=== PATIENT | female | born 2000 | race Caucasian/White ===

== ENCOUNTER → 2018-02-09 16:35 | Outpatient (CLI) | payer OTHER, MEDICAID, SELFPAY ==
[2018-02-09 18:03] LABS: Add Manual Diff / Slide Review NO; Basophils Percent Auto 0.2 % (0-2); Hematocrit 45.2 % (36-46); Hemoglobin 15.5 g/dL (12.0-16.0); Mean Corpuscular HGB Conc 34.3 % (30-36); Mean Corpuscular Hemoglobin 30.1 PG (26-34); Mean Corpuscular Volume 87.7 fL (80-100); Monocytes Percent Auto 8.1 % (3-14); Neutrophils Absolute Auto 4000 /uL (3000-5900); Neutrophils Percent Auto 57.7 % (50-75); Platelet Count 324 X10^3/uL (150-400); Red Blood Cell Count 5.15 X10^6/uL (4.0-5.2); Red Cell Distribution Width 12.3 % (11.6-14.8); White Blood Cell Count 6.9 X10^3/uL (4.5-11.0)
[2018-02-09 18:28] LABS: Erythrocyte Sedimentation Rate 5 MM/HR (0-20)
[2018-02-09 18:31] LABS: Alanine Aminotransferase 53 IU/L (9-52); Albumin 4.9 g/dL (3.5-5.0); Albumin Globulin Ratio 1.5 (1.0-2.8); Alkaline Phosphatase 76 U/L (38-126); Aspartate Aminotransferase 31 IU/L (14-36); Bilirubin Total 0.7 mg/dL (0.2-1.3); Blood Urea Nitrogen 7 mg/dL (7-17); Calcium 9.9 mg/dL (8.4-10.2); Carbon Dioxide 31 mmol/L (22-32); Chloride 100 mmol/L (98-107); Estimated Glomerular Filt Rate > 60.0 mL/min (>60); Globulin 3.3 g/dL (1.7-4.1); Glucose 82 mg/dL (70-100); HEMOLYSIS < 15 (0-50); Potassium 4.7 mmol/L (3.4-5.1); Sodium 142 mmol/L (137-145); Total Protein 8.2 g/dL (6.3-8.2)
== END ==
PROVIDERS: Family Provider Family Medicine; PCP Family Medicine; Visit Provider Family Medicine
DX: K62.5 Hemorrhage of anus and rectum (principal)
CPT/HCPCS: 36415; 80053; 85025; 85651

== ENCOUNTER 2018-06-23 14:37 | Emergency (ER) | payer OTHER, SELFPAY ==
[2018-06-23 14:46] VITALS: BP 136/90; PULSE 78; RESP 13; TEMP 36.3; O2SAT 98
--- NOTE | 2018-06-23 14:46 | ED.WOUNDLAC ---
HPI - Wound/Laceration <MATTHEW Yung Last Filed: 06/23/18 21:40> General Chief Complaint: Wound/Laceration Stated Complaint: RIGHT THUMB INJURY Time Seen by Provider: 06/23/18 14:45 Source: patient Mode of arrival: ambulatory Limitations: no limitations History of Present Illness HPI narrative: this 18 year old healthy female was trying to pull a piece of onion off of a mandoline at work when she the cut her right thumb on 1 of the blades. She is right handed. She states that initially she had a lot of bleeding in her thumb. She thoroughly rinsed it with soap and water and used an iodine solution. Not bleeding now. She denies any weakness or paresthesia in the thumb. No other injury. She denies any possibility of and has an IUD in place. Related Data Allergies Allergy/AdvReac Type Severity Reaction Status Date / Time No Known Drug Allergies Allergy Verified 06/23/18 15:20 Review of Systems <MATTHEW Yung Last Filed: 06/23/18 21:40> Review of Systems ROS Unobtainable: All systems reviewed & are unremarkable except as noted in HPI and below Exam <Kaylee Smith PA-C - Last Filed: 06/23/18 21:40> Narrative Exam Narrative: GENERAL APPEARANCE: Patient sitting comfortably, in no distress. LUNGS: Clear to auscultation bilaterally. HEART: Rate and rhythm regular without murmur, normal S1 and S2, no S3 or S4. DERMATOLOGIC: The right thumb there are several small abraded areas on the pad. No active bleeding or open areas NEUROVASCULAR: Right thumb is warm and pink, sensation grossly intact MUSCULOSKELETAL: Right thumb full range of motion, strength is intact in all metz against resistance Initial Vital Signs Initial Vital Signs: Vital Signs Temperature 97.4 F L 06/23/18 14:46 Pulse Rate 78 06/23/18 14:46 Respiratory Rate 13 06/23/18 14:46 Blood Pressure 136/90 06/23/18 14:46 Pulse Oximetry 98 06/23/18 14:46 <Miguel Powell DO - Last Filed: 06/24/18 07:13> Initial Vital Signs Initial Vital Signs: Vital Signs Temperature 97.4 F L 06/23/18 14:46 Pulse Rate 78 06/23/18 14:46 Respiratory Rate 13 06/23/18 14:46 Blood Pressure 136/90 06/23/18 14:46 Pulse Oximetry 98 06/23/18 14:46 Course <Kaylee Smith PA-C - Last Filed: 06/23/18 21:40> Orders Ordered: Discontinued Medications Ibuprofen (Advil) 800 mg PO NOW ONE Stop: 06/23/18 15:02 Last Admin: 06/23/18 15:19 Dose: 800 mg Vital Signs - 8 hr 06/23/18 14:46 06/23/18 15:47 Temperature 97.4 F L Pulse Rate 78 80 Respiratory Rate 13 18 Blood Pressure 136/90 Blood Pressure [Left Arm] 125/94 H Pulse Oximetry 98 97 <Miguel Powell DO - Last Filed: 06/24/18 07:13> Orders Ordered: Discontinued Medications Ibuprofen (Advil) 800 mg PO NOW ONE Stop: 06/23/18 15:02 Last Admin: 06/23/18 15:19 Dose: 800 mg Vital Signs - 8 hr 06/23/18 14:46 06/23/18 15:47 Temperature 97.4 F L Pulse Rate 78 80 Respiratory Rate 13 18 Blood Pressure 136/90 Blood Pressure [Left Arm] 125/94 H Pulse Oximetry 98 97 Discharge Plan Departure Patient Disposition: Home Clinical Impression: Avulsion of skin Discharge Date/Time: 06/23/18 15:52 Interventions: ED Discharge Assessment Last Done: 06/23/18 15:52 Instructions: DI for Avulsion Laceration (Not Requiring Sutures) Activity Restrictions/Additional Instructions: please keep this wound clean and dry. Wear the dressing when you are at work for protection until this wound is healed. Monitor for any signs of infection as we talked about and to return here to your PCP right away if you notice any. Continue ibuprofen as needed for pain and you can add Tylenol if needed. Referrals: Demian Maurer MD [Physician] - <Miguel Powell DO - Last Filed: 06/24/18 07:13> Cosign ED Attending Chanel Attestation: I was available for consultation during this patient's emergency department encounter
[2018-06-23] MEDS: IBUPROFEN 400 MG TABLET 800 MG PO (15:19)
[2018-06-23 15:47] VITALS: BP 125/94; PULSE 80; RESP 18; O2SAT 97
== END 2018-06-23 15:52 | disposition home or self-care (01) ==
PROVIDERS: Emergency Provider Internal Medicine
DX: S61.011A Laceration without foreign body of right thumb without damage to nail, initial encounter (principal); W26.8XXA Contact with other sharp object(s), not elsewhere classified, initial encounter; Y99.0 Civilian activity done for income or pay
CPT/HCPCS: 99283

== ENCOUNTER 2018-08-01 16:50 | Emergency (ER) | payer OTHER, MEDICAID, SELFPAY ==
[2018-08-01 17:09] VITALS: BP 143/99; PULSE 100; RESP 18; TEMP 36.6; O2SAT 99
[2018-08-01] MEDS: ONDANSETRON 4 MG ODT PO (17:15)
== END 2018-08-01 18:05 | disposition left against medical advice (07) ==
PROVIDERS: Emergency Provider Emergency Medicine; Family Provider Family Medicine; PCP Family Medicine
CPT/HCPCS: 99282

== ENCOUNTER 2019-05-14 11:55 | Emergency (ER) | payer OTHER, MEDICAID, SELFPAY ==
[2019-05-14 12:04] VITALS: BP 112/79; PULSE 86; RESP 18; TEMP 36.3; O2SAT 98
[2019-05-14] MEDS: SODIUM CHLORIDE 0.9% 1,000 ML 1000 ML IV ×3 (12:30→16:31)
[2019-05-14] MEDS: ONDANSETRON 4 MG/2 ML INJ IV (12:30)
[2019-05-14 12:37] LABS: Add Manual Diff / Slide Review NO; Basophils Absolute Auto 0 /uL (0-100); Basophils Percent Auto 0.2 % (0-2); Eosinophils Absolute Auto 600 /uL (0-450); Eosinophils Percent Auto 7.3 % (2-4); Hematocrit 44.8 % (36-46); Hemoglobin 15.8 g/dL (12.0-16.0); Lymphocytes Absolute Auto 1800 /uL (1100-4500); Lymphocytes Percent Auto 22.4 % (25-40); Mean Corpuscular HGB Conc 35.2 % (30-36); Mean Corpuscular Hemoglobin 30.8 PG (26-34); Mean Corpuscular Volume 87.5 fL (80-100); Monocytes Absolute Auto 500 /uL (0-900); Monocytes Percent Auto 6.8 % (3-14); Neutrophils Absolute Auto 5000 /uL (1500-7000); Neutrophils Percent Auto 63.3 % (50-75); Platelet Count 323 X10^3/uL (150-400); Red Blood Cell Count 5.12 X10^6/uL (4.0-5.2); Red Cell Distribution Width 12.3 % (11.6-14.8); White Blood Cell Count 7.9 X10^3/uL (4.5-11.0)
[2019-05-14 12:41] LABS: INR 1.1 (0.9-1.3); Prothrombin Time 12.3 SECONDS (10.1-12.7)
[2019-05-14 12:43] LABS: PTT Partial Thromboplastin Tim 35 SECONDS (26.4-36.2)
[2019-05-14 12:44] LABS: Amylase 115 U/L (30-110)
[2019-05-14] MEDS: METOCLOPRAMIDE 10 MG/2 ML INJ IV (12:47)
[2019-05-14] MEDS: diphenhydrAMINE 50 MG/ML VIAL IV (12:51)
[2019-05-14 12:59] LABS: Alanine Aminotransferase 15 IU/L (<35); Albumin 5.1 g/dL (3.5-5.0); Albumin Globulin Ratio 1.5 (1.0-2.8); Alkaline Phosphatase 90 U/L (38-126); Aspartate Aminotransferase 22 IU/L (14-36); BUN Creatinine Ratio 17.1 (6-22); Bilirubin Total 0.5 mg/dL (0.2-1.3); Blood Urea Nitrogen 12 mg/dL (7-17); Carbon Dioxide 23 mmol/L (22-32); Chloride 104 mmol/L (98-107); Estimated Glomerular Filt Rate > 60.0 mL/min (>60); Globulin 3.4 g/dL (1.7-4.1); Glucose 116 mg/dL (70-100); HEMOLYSIS < 15 (0-50); Lipase 116 U/L (23-300); Potassium 3.8 mmol/L (3.4-5.1); Sodium 141 mmol/L (137-145); Total Protein 8.5 g/dL (6.3-8.2)
--- NOTE | 2019-05-14 13:01 | ED.NAVMDI ---
HPI - Nausea/Vomiting/Diarrhea <JOVAN CalvinBC - Last Filed: 05/14/19 18:46> General Chief complaint: Nausea/Vomiting/Diarrhea Stated complaint: THROWING UP NON STOP DIARRHEA ABD PAIN Time Seen by Provider: 05/14/19 12:11 Source: patient Mode of arrival: Ambulatory Limitations: no limitations History of Present Illness HPI Narrative: The patient is a 19-year-old female current everyday smoker with history of adjustment disorder and cyclic vomiting who presents with a chief complaint of nonstop throwing up and diarrhea since this morning at 10:00 a.m.. She states it hit suddenly, and she has been vomiting so much she is now vomiting bile. She complains of diarrhea and abdominal cramping. She denies any previous abdominal surgeries, please note taken anything to feel better home. She says that she cannot keep down fluids. She denies any drugs or alcohol but endorses marijuana use. She denies any objective fevers but complains of cold sweats and chills. She presents with her best friend and her boyfriend. She denies any possibility of and states that she has an IUD. She denies any dysuria urgency or frequency Related Data Previous Rx's Medication Instructions Recorded metoclopramide HCl 10 mg PO Q6H PRN #14 tab 05/14/19 ondansetron 4 mg PO Q6H PRN #20 tab 05/14/19 promethazine 25 mg TX Q4-6H PRN #12 each 05/14/19 hyoscyamine sulfate 0.125 mg PO BID-QID PRN #20 tab 05/15/19 Allergies Allergy/AdvReac Type Severity Reaction Status Date / Time No Known Drug Allergies Allergy Verified 05/14/19 12:07 Review of Systems <JOVAN CalvinBC - Last Filed: 05/14/19 18:46> Review of Systems Narrative: GENERAL: Denies chills, fatigue, malaise, fever, sweats. HEENT: Denies sinus pain, ear pain, sore throat, difficulty swallowing, dizziness. RESPIRATORY: Denies dyspnea, cough, wheezing, hemoptysis, sputum. CARDIOVASCULAR: Denies chest pain, palpitations, orthopnea, edema, GASTROINTESTINAL: See HPI : Denies dysuria, frequency, incontinence, hematuria, urinary retention. MUSCULOSKELETAL: denies weakness, joint pain, or bony pain SKIN: Denies rash, skin lesions, or other NEUROLOGIC: Denies weakness, headache, numbness, change in speech, confusion, seizures, incoordination. PSYCHIATRIC: No concerning psychosocial issues. 12 point review of systems is negative except for those stated above Patient History <FRANCISCO Calvin - Last Filed: 05/14/19 18:46> Medical History History of depression (Chronic) Surgical History No pertinent past surgical history (Chronic) Family History (System 06/25/18 @ 08:16 by Clarissa Stevenson) Other Family history non-contributory Social History Smoking Status: Current every day smoker additional social history: no EtOH or tobacco, occasional THC Smoking Status: Current every day smoker alcohol intake frequency: 0-2 drinks per day Substance Use Type: marijuana Exam <FRANCISCO Calvin - Last Filed: 05/14/19 18:46> Narrative Exam Narrative: GENERAL: This is a well-nourished, well-developed patient, actively retching while holding empty vomit bag HEAD: Atraumatic. Normocephalic. No temporal or scalp tenderness. EYES: Pupils equal round and reactive. Extraocular motions intact. No scleral icterus. No injection or drainage. ENT: Nose without bleeding, purulent drainage or septal hematoma. Throat without erythema, tonsillar hypertrophy or exudate. Uvula midline. Airway patent. NECK: Trachea midline. No JVD or lymphadenopathy. Supple, nontender, no meningeal signs. CARDIOVASCULAR: Regular rate and rhythm RESPIRATORY: Clear to auscultation. Breath sounds equal bilaterally. No wheezes, rales, or rhonchi. No cough. No increased respiratory effort. No accessory muscle use. GASTROINTESTINAL: Abdomen soft, diffusely tender, nondistended. No hepato-splenomegaly, or palpable masses. No guarding. Active bowel sounds all 4 quadrants EXTREMITIES: No clubbing, cyanosis, or edema. No joint tenderness, effusion, or edema noted. BACK: Nontender without deformity or crepitance. No flank tenderness. NEURO: AOx3. SKIN: No rash or erythema on visible skin. Appears slightly pale. Initial Vital Signs Initial Vital Signs: Vital Signs Temperature 97.3 F L 05/14/19 12:04 Pulse Rate 86 05/14/19 12:04 Respiratory Rate 18 05/14/19 12:04 Blood Pressure 112/79 05/14/19 12:04 Pulse Oximetry 98 05/14/19 12:04 <Izabel Plasencia MD - Last Filed: 05/21/19 08:08> Initial Vital Signs Initial Vital Signs: Vital Signs Temperature 97.3 F L 05/14/19 12:04 Pulse Rate 86 05/14/19 12:04 Respiratory Rate 18 05/14/19 12:04 Blood Pressure 112/79 05/14/19 12:04 Pulse Oximetry 98 05/14/19 12:04 Course <JOVAN CalvinBC - Last Filed: 05/14/19 18:46> Orders Ordered: Discontinued Medications Diphenhydramine HCl (Benadryl) 50 mg IV NOW ONE Stop: 05/14/19 12:50 Last Admin: 05/14/19 12:51 Dose: 50 mg Documented by: ALISE Sodium Chloride (Normal Saline 0.9%) 1,000 mls @ 1,000 mls/hr IV BOLUS ONE Stop: 05/14/19 13:15 Last Infusion: 05/14/19 13:36 Dose: 0 mls/hr Documented by: SCANAPNima Admin: 05/14/19 12:30 Dose: 1,000 mls/hr Documented by: SCANAPO Sodium Chloride (Normal Saline 0.9%) 1,000 mls @ 1,000 mls/hr IV BOLUS ONE Stop: 05/14/19 14:52 Last Infusion: 05/14/19 15:44 Dose: 0 mls/hr Documented by: Admin: 05/14/19 14:21 Dose: 1,000 mls/hr Documented by: SCANAPO Sodium Chloride (Normal Saline 0.9%) 1,000 mls @ 1,000 mls/hr IV BOLUS ONE Stop: 05/14/19 17:28 Last Infusion: 05/14/19 17:32 Dose: 0 mls/hr Documented by: Admin: 05/14/19 16:31 Dose: 1,000 mls/hr Documented by: OTTO Lorazepam (Ativan) 1 mg IV NOW ONE Stop: 05/14/19 13:13 Last Admin: 05/14/19 13:19 Dose: 1 mg Documented by: ALISE Metoclopramide HCl (Reglan) 10 mg IV NOW ONE Stop: 05/14/19 12:44 Last Admin: 05/14/19 12:47 Dose: 10 mg Documented by: ALISE Ondansetron HCl (Zofran) 4 mg IV NOW ONE Stop: 05/14/19 12:17 Last Admin: 05/14/19 12:30 Dose: 4 mg Documented by: OTTO Ondansetron HCl (Zofran Odt Prepack) 1 bottle MISC SEEINSTR ONE Stop: 05/14/19 17:20 Last Admin: 05/14/19 17:43 Dose: 1 bottle Documented by: ALISE Prochlorperazine (Compazine) 10 mg IV NOW ONE Stop: 05/14/19 13:13 Last Admin: 05/14/19 13:19 Dose: 10 mg Documented by: ALISE Promethazine HCl (Phenadoz) 25 mg TX NOW ONE Stop: 05/14/19 13:13 Last Admin: 05/14/19 14:20 Dose: 25 mg Documented by: OTTO Promethazine HCl (Phenergan 25 Mg Prepack) 1 bottle MISC SEEINSTR ONE Stop: 05/14/19 17:20 Last Admin: 05/14/19 17:44 Dose: 1 bottle Documented by: ALISE Vital Signs Vital signs: Vital Signs - 8 hr 05/14/19 12:04 05/14/19 13:19 05/14/19 13:21 Temperature 97.3 F L Pulse Rate 86 88 80 Respiratory Rate 18 18 Blood Pressure 112/79 122/70 Blood Pressure [Left Arm] 122/70 Pulse Oximetry 98 98 05/14/19 18:21 Temperature Pulse Rate 71 Respiratory Rate Blood Pressure Blood Pressure [Left Arm] 130/83 Pulse Oximetry 99 <Izabel Plasencia MD - Last Filed: 05/21/19 08:08> Orders Ordered: Discontinued Medications Diphenhydramine HCl (Benadryl) 50 mg IV NOW ONE Stop: 05/14/19 12:50 Last Admin: 05/14/19 12:51 Dose: 50 mg Documented by: ALISE Sodium Chloride (Normal Saline 0.9%) 1,000 mls @ 1,000 mls/hr IV BOLUS ONE Stop: 05/14/19 13:15 Last Infusion: 05/14/19 13:36 Dose: 0 mls/hr Documented by: Admin: 05/14/19 12:30 Dose: 1,000 mls/hr Documented by: AKILAHO Sodium Chloride (Normal Saline 0.9%) 1,000 mls @ 1,000 mls/hr IV BOLUS ONE Stop: 05/14/19 14:52 Last Infusion: 05/14/19 15:44 Dose: 0 mls/hr Documented by: Admin: 05/14/19 14:21 Dose: 1,000 mls/hr Documented by: OTTO Sodium Chloride (Normal Saline 0.9%) 1,000 mls @ 1,000 mls/hr IV BOLUS ONE Stop: 05/14/19 17:28 Last Infusion: 05/14/19 17:32 Dose: 0 mls/hr Documented by: Admin: 05/14/19 16:31 Dose: 1,000 mls/hr Documented by: OTTO Lorazepam (Ativan) 1 mg IV NOW ONE Stop: 05/14/19 13:13 Last Admin: 05/14/19 13:19 Dose: 1 mg Documented by: ALISE Metoclopramide HCl (Reglan) 10 mg IV NOW ONE Stop: 05/14/19 12:44 Last Admin: 05/14/19 12:47 Dose: 10 mg Documented by: ALISE Ondansetron HCl (Zofran) 4 mg IV NOW ONE Stop: 05/14/19 12:17 Last Admin: 05/14/19 12:30 Dose: 4 mg Documented by: OTTO Ondansetron HCl (Zofran Odt Prepack) 1 bottle MISC SEEINSTR ONE Stop: 05/14/19 17:20 Last Admin: 05/14/19 17:43 Dose: 1 bottle Documented by: ALISE Prochlorperazine (Compazine) 10 mg IV NOW ONE Stop: 05/14/19 13:13 Last Admin: 05/14/19 13:19 Dose: 10 mg Documented by: ALISE Promethazine HCl (Phenadoz) 25 mg TX NOW ONE Stop: 05/14/19 13:13 Last Admin: 05/14/19 14:20 Dose: 25 mg Documented by: OTTO Promethazine HCl (Phenergan 25 Mg Prepack) 1 bottle MISC SEEINSTR ONE Stop: 05/14/19 17:20 Last Admin: 05/14/19 17:44 Dose: 1 bottle Documented by: ALISE Vital Signs Vital signs: Vital Signs - 8 hr 05/14/19 12:04 05/14/19 13:19 05/14/19 13:21 Temperature 97.3 F L Pulse Rate 86 88 80 Respiratory Rate 18 18 Blood Pressure 112/79 122/70 Blood Pressure [Left Arm] 122/70 Pulse Oximetry 98 98 05/14/19 18:21 Temperature Pulse Rate 71 Respiratory Rate Blood Pressure Blood Pressure [Left Arm] 130/83 Pulse Oximetry 99 MDM - Nausea/Vomiting/Diarrhea <CAMILLE Calvin- - Last Filed: 05/14/19 18:46> Lab Data Result diagrams: 05/14/19 12:25 05/14/19 12:25 Labs: Lab Results 05/14/19 05/14/19 05/14/19 Range/Units 12:25 12:25 12:25 WBC 7.9 (4.5-11.0) X10^3/uL RBC 5.12 (4.0-5.2) X10^6/uL Hgb 15.8 (12.0-16.0) g/dL Hct 44.8 (36-46) % MCV 87.5 (80-100) fL MCH 30.8 (26-34) PG MCHC 35.2 (30-36) % RDW 12.3 (11.6-14.8) % Plt Count 323 (150-400) X10^3/uL Neut % (Auto) 63.3 (50-75) % Lymph % (Auto) 22.4 L (25-40) % [place] % (Auto) 6.8 (3-14) % Eos % (Auto) 7.3 H (2-4) % Baso % (Auto) 0.2 (0-2) % Neut # (Auto) 5000 (7616-7786) /uL Lymph # (Auto) 1800 (4832-7018) /uL [place] # (Auto) 500 (0-900) /uL Eos # (Auto) 600 H (0-450) /uL Baso # (Auto) 0 (0-100) /uL PT 12.3 (10.1-12.7) SECONDS INR 1.1 (0.9-1.3) APTT 35 (26.4-36.2) SECONDS Sodium 141 (137-145) mmol/L Potassium 3.8 (3.4-5.1) mmol/L Chloride 104 (98-107) mmol/L Carbon Dioxide 23 (22-32) mmol/L BUN 12 (7-17) mg/dL Creatinine 0.70 (0.52-1.04) mg/dL Estimated GFR > 60.0 (>60) mL/min BUN/Creatinine Ratio 17.1 (6-22) Glucose 116 H (70-100) mg/dL Calcium 10.0 (8.4-10.2) mg/dL Total Bilirubin 0.5 (0.2-1.3) mg/dL AST 22 (14-36) IU/L ALT 15 (<35) IU/L Alkaline Phosphatase 90 (38-126) U/L Total Protein 8.5 H (6.3-8.2) g/dL Albumin 5.1 H (3.5-5.0) g/dL Globulin 3.4 (1.7-4.1) g/dL Albumin/Globulin Ratio 1.5 (1.0-2.8) Amylase (30-110) U/L Lipase 116 (23-300) U/L Urine RBC (0-5/HPF) Urine WBC (0-5/HPF) Ur Squamous Epith Cells (0-5/HPF) Amorphous Sediment Urine Bacteria (None) Ur Culture Indicated? 05/14/19 05/14/19 Range/Units 12:25 16:02 WBC (4.5-11.0) X10^3/uL RBC (4.0-5.2) X10^6/uL Hgb (12.0-16.0) g/dL Hct (36-46) % MCV (80-100) fL MCH (26-34) PG MCHC (30-36) % RDW (11.6-14.8) % Plt Count (150-400) X10^3/uL Neut % (Auto) (50-75) % Lymph % (Auto) (25-40) % [place] % (Auto) (3-14) % Eos % (Auto) (2-4) % Baso % (Auto) (0-2) % Neut # (Auto) (7161-0366) /uL Lymph # (Auto) (5647-0051) /uL [place] # (Auto) (0-900) /uL Eos # (Auto) (0-450) /uL Baso # (Auto) (0-100) /uL PT (10.1-12.7) SECONDS INR (0.9-1.3) APTT (26.4-36.2) SECONDS Sodium (137-145) mmol/L Potassium (3.4-5.1) mmol/L Chloride (98-107) mmol/L Carbon Dioxide (22-32) mmol/L BUN (7-17) mg/dL Creatinine (0.52-1.04) mg/dL Estimated GFR (>60) mL/min BUN/Creatinine Ratio (6-22) Glucose (70-100) mg/dL Calcium (8.4-10.2) mg/dL Total Bilirubin (0.2-1.3) mg/dL AST (14-36) IU/L ALT (<35) IU/L Alkaline Phosphatase (38-126) U/L Total Protein (6.3-8.2) g/dL Albumin (3.5-5.0) g/dL Globulin (1.7-4.1) g/dL Albumin/Globulin Ratio (1.0-2.8) Amylase 115 H (30-110) U/L Lipase (23-300) U/L Urine RBC None seen (0-5/HPF) Urine WBC None seen (0-5/HPF) Ur Squamous Epith Cells 1-5 /hpf (0-5/HPF) Amorphous Sediment 1+ Urine Bacteria None seen (None) Ur Culture Indicated? Cult not indicated Point of Care Testing Test Results Negative Urine Dip Bedside Urine Glucose Negative Bedside Urine Bilirubin - Negative Bedside Urine Ketone ++ 40 Urine Specific [place] 1.015 Bedside Urine Occult Blood - Negative Bedside Urine pH 8.0 Bedside Urine Protein +/- 15 Bedside Urine Urobilinogen - Negative Bedside Urine Nitrite - Negative Bedside Urine Leukocytes - Negative Esterase ECG Data Attestation: I personally reviewed and interpreted this ECG as follows: Interpretation: Sinus rhythm. Ventricular rate 70. No ST elevation or depression noted. No ectopy noted. P.r. interval 155. QRS duration 99. MDM Narrative Medical decision making narrative: The patient is a 19-year-old female who presents with her 4th episode of vomiting with occasional diarrhea. She has been seen at other facilities for this, including CT scan evaluation. Her labs are grossly normal. She has no fever, no leukocytosis on labs. She is given multiple antiemetics including Zofran, Reglan, Ativan, Phenergan. She felt improved after 3 L of fluid and the above-stated therapies. However she still feels nauseous, and vomit slightly. I offered to CT scan and try to arrange for admission. The patient declines at this point time. She states that she has had multiple CTs recently with no findings. I discussed at length resting her stomach, gave her antiemetic prescriptions as well as take-home packs. I discussed at length follow up with primary care provider, strongly suggested stopping smoking marijuana as she could have marijuana induced cyclic vomiting syndrome. Discussed at length return precautions the emergency department cleaning inability keep down fluids after rest, not pain fever etc.. Patient family have no questions or concerns upon discharge and state understanding of return precautions as well as follow-up care. <Izabel Plasencia MD - Last Filed: 05/21/19 08:08> Lab Data Labs: Lab Results 05/14/19 05/14/19 05/14/19 Range/Units 12:25 12:25 12:25 WBC 7.9 (4.5-11.0) X10^3/uL RBC 5.12 (4.0-5.2) X10^6/uL Hgb 15.8 (12.0-16.0) g/dL Hct 44.8 (36-46) % MCV 87.5 (80-100) fL MCH 30.8 (26-34) PG MCHC 35.2 (30-36) % RDW 12.3 (11.6-14.8) % Plt Count 323 (150-400) X10^3/uL Neut % (Auto) 63.3 (50-75) % Lymph % (Auto) 22.4 L (25-40) % [place] % (Auto) 6.8 (3-14) % Eos % (Auto) 7.3 H (2-4) % Baso % (Auto) 0.2 (0-2) % Neut # (Auto) 5000 (9785-3227) /uL Lymph # (Auto) 1800 (2426-8411) /uL [place] # (Auto) 500 (0-900) /uL Eos # (Auto) 600 H (0-450) /uL Baso # (Auto) 0 (0-100) /uL PT 12.3 (10.1-12.7) SECONDS INR 1.1 (0.9-1.3) APTT 35 (26.4-36.2) SECONDS Sodium 141 (137-145) mmol/L Potassium 3.8 (3.4-5.1) mmol/L Chloride 104 (98-107) mmol/L Carbon Dioxide 23 (22-32) mmol/L BUN 12 (7-17) mg/dL Creatinine 0.70 (0.52-1.04) mg/dL Estimated GFR > 60.0 (>60) mL/min BUN/Creatinine Ratio 17.1 (6-22) Glucose 116 H (70-100) mg/dL Calcium 10.0 (8.4-10.2) mg/dL Total Bilirubin 0.5 (0.2-1.3) mg/dL AST 22 (14-36) IU/L ALT 15 (<35) IU/L Alkaline Phosphatase 90 (38-126) U/L Total Protein 8.5 H (6.3-8.2) g/dL Albumin 5.1 H (3.5-5.0) g/dL Globulin 3.4 (1.7-4.1) g/dL Albumin/Globulin Ratio 1.5 (1.0-2.8) Amylase (30-110) U/L Lipase 116 (23-300) U/L Urine RBC (0-5/HPF) Urine WBC (0-5/HPF) Ur Squamous Epith Cells (0-5/HPF) Amorphous Sediment Urine Bacteria (None) Ur Culture Indicated? 05/14/19 05/14/19 Range/Units 12:25 16:02 WBC (4.5-11.0) X10^3/uL RBC (4.0-5.2) X10^6/uL Hgb (12.0-16.0) g/dL Hct (36-46) % MCV (80-100) fL MCH (26-34) PG MCHC (30-36) % RDW (11.6-14.8) % Plt Count (150-400) X10^3/uL Neut % (Auto) (50-75) % Lymph % (Auto) (25-40) % [place] % (Auto) (3-14) % Eos % (Auto) (2-4) % Baso % (Auto) (0-2) % Neut # (Auto) (6440-2992) /uL Lymph # (Auto) (3235-3421) /uL [place] # (Auto) (0-900) /uL Eos # (Auto) (0-450) /uL Baso # (Auto) (0-100) /uL PT (10.1-12.7) SECONDS INR (0.9-1.3) APTT (26.4-36.2) SECONDS Sodium (137-145) mmol/L Potassium (3.4-5.1) mmol/L Chloride (98-107) mmol/L Carbon Dioxide (22-32) mmol/L BUN (7-17) mg/dL Creatinine (0.52-1.04) mg/dL Estimated GFR (>60) mL/min BUN/Creatinine Ratio (6-22) Glucose (70-100) mg/dL Calcium (8.4-10.2) mg/dL Total Bilirubin (0.2-1.3) mg/dL AST (14-36) IU/L ALT (<35) IU/L Alkaline Phosphatase (38-126) U/L Total Protein (6.3-8.2) g/dL Albumin (3.5-5.0) g/dL Globulin (1.7-4.1) g/dL Albumin/Globulin Ratio (1.0-2.8) Amylase 115 H (30-110) U/L Lipase (23-300) U/L Urine RBC None seen (0-5/HPF) Urine WBC None seen (0-5/HPF) Ur Squamous Epith Cells 1-5 /hpf (0-5/HPF) Amorphous Sediment 1+ Urine Bacteria None seen (None) Ur Culture Indicated? Cult not indicated Point of Care Testing Test Results Negative Urine Dip Bedside Urine Glucose Negative Bedside Urine Bilirubin - Negative Bedside Urine Ketone ++ 40 Urine Specific [place] 1.015 Bedside Urine Occult Blood - Negative Bedside Urine pH 8.0 Bedside Urine Protein +/- 15 Bedside Urine Urobilinogen - Negative Bedside Urine Nitrite - Negative Bedside Urine Leukocytes - Negative Esterase Discharge Plan Departure Patient Disposition: Home Clinical Impression: Vomiting Qualifiers: Vomiting type: unspecified Vomiting Intractability: non-intractable Nausea presence: with nausea Qualified Code(s): R11.2 - Nausea with vomiting, unspecified Discharge Date/Time: 05/14/19 18:48 Instructions: DI for Nausea -- Adult, DI for Vomiting -- Adult, DI for Cyclic Vomiting Syndrome-Child Activity Restrictions/Additional Instructions: We have given you to take-home packs as well as 3 prescriptions for antinausea medications. Please rest your stomach. Please follow-up with primary care provider. As discussed, please come back to the emergency department for any acute concerns such as abdominal who fever etcetera Prescriptions: New ondansetron 4 mg tablet,disintegrating 4 mg PO Q6H PRN (Reason: nausea and vomiting) Qty: 20 RF: 0 metoclopramide HCl 10 mg tablet 10 mg PO Q6H PRN (Reason: nausea and vomiting) Qty: 14 RF: 0 promethazine 25 mg suppository 25 mg TX Q4-6H PRN (Reason: nausea and vomiting) Qty: 12 RF: 0 No Action hyoscyamine sulfate 0.125 mg tablet 0.125 mg PO BID-QID PRN (Reason: dyspepsia) Qty: 20 RF: 0 Referrals: Demian Maurer MD [Primary Care Provider] -
[2019-05-14 13:19] VITALS: BP 122/70; PULSE 88
[2019-05-14] MEDS: LORazepam 2 MG/ML INJ 1 MG IV (13:19)
[2019-05-14] MEDS: PROCHLORPERAZINE 10 MG/2 ML VIAL IV (13:19)
--- NOTE | 2019-05-14 13:19 | DI.RAD.S_ITS ---
PROCEDURE: XR ABDOMEN 1V INDICATIONS: abd pain, vomiting TECHNIQUE: One view of the abdomen acquired. COMPARISON: [facility], CT, CT ABDOMEN PELVIS WITH CONTRAST, 08/02/2018, 0:11. FINDINGS: Surgical changes and devices: Note is made of a IUD centered just to the left of midline, similar in position to that present on CT scanogram from 08/02/18.. Bowel: Bowel gas pattern is normal. Soft tissues: No suspicious abdominal calcifications. Visualized solid organ contours appear normal in size. A technologist note explains that to tubular metallic structures overlying the superior left sacrum and the appendix area of the right hemipelvis represent metal components of the patient's sweatpants drawstrings. Bones: No suspicious bony lesions. IMPRESSION: Nonspecific bowel gas pattern, IUD in similar position to that noted during CT scanning 08/02/18. Dictated by: David Nuñez M.D. on 05/14/2019 at 13:36 Approved by: David Nuñez M.D. on 05/14/2019 at 13:40
[2019-05-14 13:21] VITALS: BP 122/70; PULSE 80; RESP 18; O2SAT 98
[2019-05-14] MEDS: PROMETHAZINE 25 MG SUPP PR (14:20)
[2019-05-14 16:15] LABS: Bacteria Urine None Seen; RBC Urine None Seen (0-5/HPF); WBC Urine None Seen (0-5/HPF)
[2019-05-14 16:28] LABS: Amorphous Sediment Urine 1+; Culture Indicated Urine Cult Not Indicated; Squamous Epithelial Cell Urine 1-5 /HPF (0-5/HPF)
[2019-05-14] MEDS: ONDANSETRON 4 MG ODT PREPACK 1 BOTTLE MISC (17:43)
[2019-05-14] MEDS: PROMETHAZINE 25 MG PREPACK 1 BOTTLE MISC (17:44)
[2019-05-14 18:21] VITALS: BP 130/83; PULSE 71; O2SAT 99
== END 2019-05-14 18:48 | disposition home or self-care (01) ==
PROVIDERS: Emergency Medicine; Emergency Provider Nurse Practitioner Family; Family Provider Family Medicine; PCP Family Medicine
DX: R11.2 Nausea with vomiting, unspecified (principal)
CPT/HCPCS: 36415; 74018; 80053; 81003; 81015; 81025; 82150; 83690; 85025; 85610; 85730; 93005; 96361; 96374; 96375; 99284; 99285; J0780; J1200; J2060; J2405; J2765

== ENCOUNTER 2019-05-15 20:07 | Emergency (ER) | payer OTHER, MEDICAID, SELFPAY ==
[2019-05-15 20:18] VITALS: BP 135/92; PULSE 77; RESP 18; TEMP 37; O2SAT 100
--- NOTE | 2019-05-15 20:28 | ED_ITS ---
HPI - Nausea/Vomiting/Diarrhea General Chief complaint: Nausea/Vomiting/Diarrhea Stated complaint: vomiting since yesterday Time Seen by Provider: 05/15/19 20:10 Source: patient Mode of arrival: Ambulatory Limitations: no limitations History of Present Illness HPI Narrative: 19-year-old female smoker and daily user of marijuana returns for evaluation generalized abdominal discomfort and frequent vomiting over the course of the day. She was seen and evaluated yesterday under similar circumstances and had reassuring blood work and cessation of symptoms after 3 L of fluid and multiple antiemetics. She continues to complain of generalized crampy abdominal discomfort that comes in waves without provocation, palliation or radiation. She has had no fever or chills. She denies exposure to ill persons but states she ate some foul tasting [employer] a few days ago. She denies recent antibiotic use. MD complaint: nausea and vomiting Onset (ago): day(s) Description of Vomiting: food contents and bilious Description of Diarrhea: none Associated Abdominal Pain: Yes Location of pain: diffuse Severity: moderate Quality: cramping Pain Consistency: intermittent and colicky Relieving factors: none Related Data Previous Rx's Medication Instructions Recorded metoclopramide HCl 10 mg PO Q6H PRN #14 tab 05/14/19 ondansetron 4 mg PO Q6H PRN #20 tab 05/14/19 promethazine 25 mg VT Q4-6H PRN #12 each 05/14/19 hyoscyamine sulfate 0.125 mg PO BID-QID PRN #20 tab 05/15/19 Allergies Allergy/AdvReac Type Severity Reaction Status Date / Time No Known Drug Allergies Allergy Verified 05/14/19 12:07 Review of Systems Constitutional Constitutional: Denies chills, Denies fatigue, Denies fever(s), Denies frequent falls, Denies lethargy and Denies weakness Eyes Eyes: Denies change in vision, Denies eye discharge, Denies irritation and Denies loss of vision ENT Ears, Nose, Mouth, and Throat: Denies change in voice, Denies dizziness, Denies neck pain, Denies sore throat and Denies throat swelling Cardiovascular Cardiovascular: Denies chest pain, Denies irregular heart rhythm, Denies lightheadedness, Denies palpitations, Denies dyspnea, Denies dyspnea on exertion and Denies orthopnea Respiratory Respiratory: Denies cough, Denies dyspnea, Denies dyspnea on exertion and Denies wheezing Gastrointestinal Gastrointestinal: Reports abdominal pain, Denies change in bowel habits, Denies diarrhea, Denies nausea and Reports vomiting Genitourinary Genitourinary: Denies hematuria, Denies flank pain, Denies urinary incontinence and Denies urinary urgency Musculoskeletal Musculoskeletal: Denies back pain, Denies muscle weakness, Denies neck pain, Denies numbness and Denies tingling Integumentary/Breasts Skin/Breast: Denies pruritus, Denies erythema, Denies rash and Denies wounds Neurologic Neurologic: Denies behavioral changes, Denies confusion, Denies dizziness, Denies frequent falls, Denies loss of vision, Denies numbness, Denies tingling and Denies weakness Psychiatric Psychiatric: Denies anxiety, Denies behavioral changes, Denies confusion, Denies depression, Denies homicidal ideation and Denies suicidal ideation Endocrine Endocrine: Denies fatigue, Denies flushing and Denies palpitations Hematologic/Lymphatic Hematologic/Lymphatic: Denies easy bruising Allergic/Immunologic Allergic/Immunologic: Denies urticaria, Denies throat swelling and Denies wheezing Patient History Family History (System 06/25/18 @ 08:16 by Clarissa Stevenson) Other Family history non-contributory Social History Smoking Status: Current every day smoker additional social history: no EtOH or tobacco, occasional THC Smoking Status: Current every day smoker alcohol intake frequency: 0-2 drinks per day Substance Use Type: marijuana Exam Narrative Exam Narrative: GENERAL: [19] year old patient appears stated age. Well- nourished, well-developed patient, in mild distress. Holding emesis bag HEAD: Atraumatic. Normocephalic. EYES: Pupils equal round and reactive. Extraocular motions intact. No scleral icterus. No injection or drainage. ENT: Nose without bleeding, purulent drainage. Throat without erythema, tonsillar hypertrophy or exudate. Airway patent. NECK: Trachea midline. Non tender CARDIOVASCULAR: Regular rate and rhythm without murmurs, gallops, or rubs. RESPIRATORY: Clear to auscultation. Breath sounds equal bilaterally. No wheezes, rales, or rhonchi. GASTROINTESTINAL: Abdomen soft, non-tender, nondistended. EXTREMITIES: No edema or joint tenderness. BACK: Nontender without deformity or crepitance. No flank tenderness. NEURO: AOx3. SKIN: No rash or erythema of visible areas Initial Vital Signs Initial Vital Signs: Vital Signs Temperature 98.6 F 05/15/19 20:18 Pulse Rate 77 05/15/19 20:18 Respiratory Rate 18 05/15/19 20:18 Blood Pressure 135/92 H 05/15/19 20:18 Pulse Oximetry 100 05/15/19 20:18 Course Orders Ordered: ED Orders 05/15/19 20:29 Comprehensive Metabolic Panel Stat Lipase Stat 05/15/19 20:41 XR acute abdomen series Stat 05/15/19 20:55 Complete Blood Count AUTO DIFF Stat Partial Thromboplastin Time Stat Prothrombin Time INR Stat Discontinued Medications Sodium Chloride (Normal Saline 0.9%) 1,000 mls @ 1,000 mls/hr IV BOLUS ONE Stop: 05/15/19 21:26 Last Infusion: 05/15/19 22:23 Dose: 0 mls/hr Documented by: Infusion: 05/15/19 21:27 Dose: 1,000 mls/hr Documented by: Infusion: 05/15/19 21:02 Dose: 0 mls/hr Documented by: Infusion: 05/15/19 20:39 Dose: 1,000 mls/hr Documented by: Infusion: 05/15/19 20:34 Dose: 0 mls/hr Documented by: Admin: 05/15/19 20:34 Dose: 1,000 mls/hr Documented by: ERICH Nalbuphine HCl (Nubain) 5 mg IV NOW ONE Stop: 05/15/19 20:42 Last Admin: 05/15/19 20:49 Dose: 5 mg Documented by: ERICH Ondansetron HCl (Zofran) 4 mg IV NOW ONE Stop: 05/15/19 20:27 Last Admin: 05/15/19 20:34 Dose: 4 mg Documented by: ERICH Pantoprazole Sodium (Protonix) 40 mg IV NOW ONE Stop: 05/15/19 20:39 Last Admin: 05/15/19 20:43 Dose: 40 mg Documented by: ERICH Vital Signs Vital signs: Vital Signs - 8 hr 05/15/19 20:18 05/15/19 22:23 Temperature 98.6 F Pulse Rate 77 65 Respiratory Rate 18 18 Blood Pressure 128/82 Blood Pressure [Left Arm] 135/92 H Pulse Oximetry 100 100 MDM - Nausea/Vomiting/Diarrhea Lab Data Result diagrams: 05/15/19 20:55 05/15/19 20:29 Labs: Lab Results 05/15/19 05/15/19 05/15/19 Range/Units 20:29 20:55 20:55 WBC 11.8 H (4.5-11.0) X10^3/uL RBC 4.67 (4.0-5.2) X10^6/uL Hgb 14.2 (12.0-16.0) g/dL Hct 41.6 (36-46) % MCV 89.1 (80-100) fL MCH 30.4 (26-34) PG MCHC 34.1 (30-36) % RDW 12.5 (11.6-14.8) % Plt Count 283 (150-400) X10^3/uL Neut % (Auto) Not Reportable Lymph % (Auto) Not Reportable Lamar % (Auto) Not Reportable Eos % (Auto) Not Reportable Baso % (Auto) Not Reportable Lymph # (Auto) Not Reportable Lamar # (Auto) Not Reportable Baso # (Auto) Not Reportable Total Counted 100 Seg Neutrophils % 80.0 H (38-70) % Band Neutrophils % 1.0 L (3-7) % Lymphocytes % (Manual) 18.0 L (25-45) % Monocytes % (Manual) 1.0 L (2-11) % Neutrophils # (Manual) 9558 H (7932-3363) /uL RBC Morphology Normal morphology PT 14.5 H (10.1-12.7) SECONDS INR 1.3 (0.9-1.3) APTT 34 (26.4-36.2) SECONDS Sodium 140 (137-145) mmol/L Potassium 3.4 (3.4-5.1) mmol/L Chloride 103 (98-107) mmol/L Carbon Dioxide 23 (22-32) mmol/L BUN 10 (7-17) mg/dL Creatinine 0.60 (0.52-1.04) mg/dL Estimated GFR > 60.0 (>60) mL/min BUN/Creatinine Ratio 16.7 (6-22) Glucose 109 H (70-100) mg/dL Calcium 10.2 (8.4-10.2) mg/dL Total Bilirubin 0.6 (0.2-1.3) mg/dL AST 24 (14-36) IU/L ALT 15 (<35) IU/L Alkaline Phosphatase 81 (38-126) U/L Total Protein 8.5 H (6.3-8.2) g/dL Albumin 5.1 H (3.5-5.0) g/dL Globulin 3.4 (1.7-4.1) g/dL Albumin/Globulin Ratio 1.5 (1.0-2.8) Lipase 66 (23-300) U/L Imaging Data Abdominal x-ray: Radiologist's Impression: 10 DO Roney Higginbotham Patient Imaging - Arpita Parmar 19 F 2000 ACTIVITY DATE EXAM STATUS AUTHOR 05/15/19 20:41 Signed Danika Glasgow [address] [address] XRay Report Signed Patient: Arpita Parmar MMR#: [id number] : 2000Acct:[id number] Age/Sex: te of Service: 05/15/19 Loc: ED Accession Number: [id number] Procedure: XR acute abdomen series Ordering Provider: Ivan Fischer D.O. PROCEDURE: XR ACUTE ABDOMEN SERIES INDICATIONS: Abdominal pain, vomiting TECHNIQUE: One view chest and two views of the abdomen were acquired. COMPARISON: [facility], , XR ABDOMEN 1V, 05/14/2019, 13:19. FINDINGS: Surgical changes and devices: Intrauterine line projects over the mid pelvis. Chest: Lungs are clear. Heart size is normal. No pleural effusions. No pneumoperitoneum. Abdomen: Bowel gas pattern is nonspecific. No suspicious calcifications. Visualized solid organ contours appear normal. Bones: No suspicious bony lesions. IMPRESSION: Nonspecific bowel gas pattern without evidence of obstruction. Dictated by: Danika Glasgow MD, PhD on 05/15/2019 at 21:19 Approved by: Danika Glasgow MD, PhD on 05/15/2019 at 21:20 [facility] Narrative Medical decision making narrative: Multiple etiologies for patient's symptoms considered including: [Bowel obstruction versus gastroenteritis versus irritable bowel syndrome versus THC hyperemesis versus other] Patient's symptoms improved or duration of stay with above-stated therapies. Findings and discharge diagnosis discussed with patient/family followed by verbalization of understanding Return precautions discussed with patient/family whom verbalize understanding. Discharge Plan Departure Patient Disposition: Home Clinical Impression: Vomiting Qualifiers: Vomiting type: unspecified Vomiting Intractability: non-intractable Nausea presence: with nausea Qualified Code(s): R11.2 - Nausea with vomiting, unspecified Discharge Date/Time: 05/15/19 22:23 Instructions: DI for Vomiting -- Adult Activity Restrictions/Additional Instructions: 1. Drink plenty of fluids with frequent small sips. 2. For the next 24-48 hours a clear liquid diet is advised. After that please employ a brat diet which would include bananas, rice, apples, toast. 3. Please take medications as directed. 4. Please follow-up with your doctor in the next 1-2 days. Call the office for an appointment. 5. Please return to the emergency Department for any worsening or persistent symptoms, such as increasing pain or fever. Prescriptions: New hyoscyamine sulfate 0.125 mg tablet 0.125 mg PO BID-QID PRN (Reason: dyspepsia) Qty: 20 RF: 0 No Action ondansetron 4 mg tablet,disintegrating 4 mg PO Q6H PRN (Reason: nausea and vomiting) Qty: 20 RF: 0 metoclopramide HCl 10 mg tablet 10 mg PO Q6H PRN (Reason: nausea and vomiting) Qty: 14 RF: 0 promethazine 25 mg suppository 25 mg VT Q4-6H PRN (Reason: nausea and vomiting) Qty: 12 RF: 0 Referrals: Demian Maurer MD [Primary Care Provider] -
[2019-05-15] MEDS: ONDANSETRON 4 MG/2 ML INJ IV (20:34)
[2019-05-15] MEDS: SODIUM CHLORIDE 0.9% 1,000 ML 1000 ML IV (20:34)
--- NOTE | 2019-05-15 20:41 | DI.RAD.S_ITS ---
PROCEDURE: XR ACUTE ABDOMEN SERIES INDICATIONS: Abdominal pain, vomiting TECHNIQUE: One view chest and two views of the abdomen were acquired. COMPARISON: [facility], CR, XR ABDOMEN 1V, 05/14/2019, 13:19. FINDINGS: Surgical changes and devices: Intrauterine line projects over the mid pelvis. Chest: Lungs are clear. Heart size is normal. No pleural effusions. No pneumoperitoneum. Abdomen: Bowel gas pattern is nonspecific. No suspicious calcifications. Visualized solid organ contours appear normal. Bones: No suspicious bony lesions. IMPRESSION: Nonspecific bowel gas pattern without evidence of obstruction. Dictated by: Danika Glasgow MD, PhD on 05/15/2019 at 21:19 Approved by: Danika Glasgow MD, PhD on 05/15/2019 at 21:20
[2019-05-15] MEDS: PANTOPRAZOLE 40 MG VIAL IV (20:43)
[2019-05-15] MEDS: NALBUPHINE 20 MG/ML AMPUL 5 MG IV (20:49)
[2019-05-15 20:50] LABS: Alanine Aminotransferase 15 IU/L (<35); Albumin 5.1 g/dL (3.5-5.0); Albumin Globulin Ratio 1.5 (1.0-2.8); Alkaline Phosphatase 81 U/L (38-126); Aspartate Aminotransferase 24 IU/L (14-36); BUN Creatinine Ratio 16.7 (6-22); Bilirubin Total 0.6 mg/dL (0.2-1.3); Blood Urea Nitrogen 10 mg/dL (7-17); Calcium 10.2 mg/dL (8.4-10.2); Carbon Dioxide 23 mmol/L (22-32); Chloride 103 mmol/L (98-107); Estimated Glomerular Filt Rate > 60.0 mL/min (>60); Globulin 3.4 g/dL (1.7-4.1); Glucose 109 mg/dL (70-100); HEMOLYSIS 36 (0-50); Lipase 66 U/L (23-300); Potassium 3.4 mmol/L (3.4-5.1); Sodium 140 mmol/L (137-145); Total Protein 8.5 g/dL (6.3-8.2)
[2019-05-15 21:11] LABS: Hematocrit 41.6 % (36-46); Hemoglobin 14.2 g/dL (12.0-16.0); Mean Corpuscular HGB Conc 34.1 % (30-36); Mean Corpuscular Hemoglobin 30.4 PG (26-34); Mean Corpuscular Volume 89.1 fL (80-100); Platelet Count 283 X10^3/uL (150-400); Red Blood Cell Count 4.67 X10^6/uL (4.0-5.2); Red Cell Distribution Width 12.5 % (11.6-14.8); White Blood Cell Count 11.8 X10^3/uL (4.5-11.0)
[2019-05-15 21:12] LABS: Add Manual Diff / Slide Review YES
[2019-05-15 21:15] LABS: INR 1.3 (0.9-1.3); Prothrombin Time 14.5 SECONDS (10.1-12.7)
[2019-05-15 21:17] LABS: PTT Partial Thromboplastin Tim 34 SECONDS (26.4-36.2)
[2019-05-15 21:59] LABS: Neutrophils Absolute Manual 9558 /uL (3000-5900); RBC Morphology Normal Morphology; Total Cells Counted 100
[2019-05-15 22:23] VITALS: BP 128/82; PULSE 65; RESP 18; O2SAT 100
== END 2019-05-15 22:23 | disposition home or self-care (01) ==
PROVIDERS: Emergency Provider Emergency Medicine; Family Provider Family Medicine; PCP Family Medicine
DX: R11.2 Nausea with vomiting, unspecified (principal)
CPT/HCPCS: 36415; 74022; 80053; 83690; 85025; 85610; 85730; 96361; 96374; 96375; 99284; C9113; J2300; J2405

== ENCOUNTER 2019-09-28 11:50 | Emergency (ER) | payer OTHER, MEDICAID, SELFPAY ==
[2019-09-28 12:19] VITALS: BP 136/82; PULSE 57; RESP 16; TEMP 36.3; O2SAT 100; BMI 24.6
[2019-09-28 16:26] LABS: Add Manual Diff / Slide Review NO; Basophils Absolute Auto 0 /uL (0-100); Basophils Percent Auto 0.2 % (0-2); Eosinophils Absolute Auto 0 /uL (0-450); Hematocrit 41.8 % (36-46); Hemoglobin 14.3 g/dL (12.0-16.0); Lymphocytes Absolute Auto 300 /uL (1100-4500); Lymphocytes Percent Auto 2.1 % (25-40); Mean Corpuscular HGB Conc 34.3 % (30-36); Mean Corpuscular Hemoglobin 30.2 PG (26-34); Monocytes Absolute Auto 200 /uL (0-900); Monocytes Percent Auto 1.3 % (3-14); Neutrophils Absolute Auto 15700 /uL (1500-7000); Neutrophils Percent Auto 96.4 % (50-75); Platelet Count 267 X10^3/uL (150-400); Red Blood Cell Count 4.75 X10^6/uL (4.0-5.2); White Blood Cell Count 16.3 X10^3/uL (4.5-11.0)
[2019-09-28] MEDS: SODIUM CHLORIDE 0.9% 1,000 ML 1000 ML IV ×2 (16:27→20:14)
[2019-09-28] MEDS: ONDANSETRON 4 MG/2 ML INJ IV (16:27)
[2019-09-28] MEDS: KETOROLAC 60 MG/2 ML VIAL 30 MG IV (16:28)
[2019-09-28 16:39] LABS: Alanine Aminotransferase 23 IU/L (<35); Albumin Globulin Ratio 1.5 (1.0-2.8); Alkaline Phosphatase 81 U/L (38-126); Aspartate Aminotransferase 24 IU/L (14-36); BUN Creatinine Ratio 15.6 (6-22); Bilirubin Total 0.3 mg/dL (0.2-1.3); Blood Urea Nitrogen 10 mg/dL (7-17); Calcium 9.9 mg/dL (8.4-10.2); Carbon Dioxide 25 mmol/L (22-32); Chloride 104 mmol/L (98-107); Estimated Glomerular Filt Rate > 60.0 mL/min (>60); Globulin 3.4 g/dL (1.7-4.1); Glucose 140 mg/dL (70-100); HEMOLYSIS < 15 (0-50); Potassium 4.1 mmol/L (3.4-5.1); Sodium 140 mmol/L (137-145); Total Protein 8.4 g/dL (6.3-8.2)
[2019-09-28] MEDS: METOCLOPRAMIDE 10 MG/2 ML INJ IV (17:19)
--- NOTE | 2019-09-28 17:20 | ED.NAVMDI ---
HPI - Nausea/Vomiting/Diarrhea <JUAN C Bob - Last Filed: 09/28/19 21:56> General Chief complaint: Nausea/Vomiting/Diarrhea Stated complaint: vomiting/food poisioning today Time Seen by Provider: 09/28/19 16:07 History of Present Illness HPI Narrative: 19 year old healthy female presents to the emergency department complaining of nausea, vomiting, and diarrhea that started this morning around 8:00 a.m.. She states she believes this is food poisoning. She denies any abdominal pain but states my stomach feels achy from vomiting. Patient denies any fevers, cough, shortness of breath, dizziness, chest pain, dysuria, or any other concerns. Patient denies any sick contacts. Patient denies any major abdominal surgeries, denies taking any medications, denies allergies. Patient states she has had episodes of vomiting like this in the past. She was seen in April for similar. Patient states she struggles with nausea and vomiting frequently, use resolves with a hot shower. Admits to smoking daily marijuana and cigarettes. Related Data Previous Rx's Medication Instructions Recorded metoclopramide HCl 10 mg PO Q6H PRN #14 tab 05/14/19 ondansetron 4 mg PO Q6H PRN #20 tab 05/14/19 promethazine 25 mg SC Q4-6H PRN #12 each 05/14/19 hyoscyamine sulfate 0.125 mg PO BID-QID PRN #20 tab 05/15/19 ondansetron 4 mg PO Q8H PRN #14 tab 09/28/19 promethazine 25 mg SC Q6H PRN #12 each 09/28/19 Allergies Allergy/AdvReac Type Severity Reaction Status Date / Time No Known Drug Allergies Allergy Verified 05/14/19 12:07 Review of Systems <JUAN C Bob - Last Filed: 09/28/19 21:56> Review of Systems Narrative: REVIEW OF SYSTEMS: GENERAL: Denies fever, chills, malaise, or wt. loss. HENT: No head trauma, sore throat, or dysphagia. EYES: No vision changes. CARDIOVASCULAR: No chest pain, palpitations, or orthopnea. RESPIRATORY: No shortness of breath or cough. GASTROINTESTINAL: Complains of nausea and vomiting, see HPI. GENITOURINARY: No flank pain, urinary incontinence, hesitancy, frequency, or dysuria. No vaginal discharge or dyspareunia. Denies concerns for STIs MUSCULOSKELETAL: No pain, weakness, or trauma. INTEGUMENTARY: No rash, lesions, or pruritus. NEURO: No numbness, tingling, or headaches. PSYCH: No behavior or mood changes. Patient History <JUAN C Bob - Last Filed: 09/28/19 21:56> Medical History History of depression (Chronic) Surgical History No pertinent past surgical history (Chronic) Family History Other Family history non-contributory Social History Smoking Status: Current every day smoker additional social history: no EtOH or tobacco, occasional THC Smoking Status: Current every day smoker alcohol intake frequency: 0-2 drinks per day Substance Use Type: marijuana Exam <JUAN C Bob - Last Filed: 09/28/19 21:56> Initial Vital Signs Initial Vital Signs: Vital Signs Temperature 97.3 F L 09/28/19 12:19 Pulse Rate 57 L 09/28/19 12:19 Respiratory Rate 16 09/28/19 12:19 Blood Pressure 136/82 09/28/19 12:19 Pulse Oximetry 100 09/28/19 12:19 PHYSICAL EXAMINATION: GENERAL: Well groomed, alert, and cooperative. Answers questions promptly and appropriately. Vital signs noted. HENT: Normocephalic, atraumatic. Hearing intact. Oral mucosa is pink and moist. EYES: Conjunctiva pink, sclera white, no periorbital swelling. CARDIOVASCULAR: S1 and S2 sounds normal. Regular rate and rhythm, no murmurs, clicks, or bruits. No pedal edema. RESPIRATORY: Normal respiratory rate, trachea midline, airway patent. No stridor, nasal flaring or accessory muscle use. Lungs are clear in all metz without wheeze, rhonchi, or crackles. GASTROINTESTINAL: Bowel sounds normoactive. Abdomen is soft and non-tender. No organomegaly, no palpable masses. GENITALURINARY: No flank tenderness. MUSCULOSKELETAL: Normal gait and coordination. Equal tone and mass bilaterally. EXTREMITIES: CMS intact, no pedal edema. SKIN: Warm, dry, soft, appropriate color for ethnicity. No lesions, rashes, or wounds to visualized areas. NEURO: Alert and Oriented X 3. Good coordination. No ataxia, or sensory deficits, or cognitive issues. PSYCH: Appropriate affect and mood. <Miguel Powell DO - Last Filed: 09/28/19 23:01> Initial Vital Signs Initial Vital Signs: Vital Signs Temperature 97.3 F L 09/28/19 12:19 Pulse Rate 57 L 09/28/19 12:19 Respiratory Rate 16 09/28/19 12:19 Blood Pressure 136/82 09/28/19 12:19 Pulse Oximetry 100 09/28/19 12:19 Course <JUAN C Bob - Last Filed: 09/28/19 21:56> Course Course Narrative: 1819: Patient reports she feels less nauseated, states she is ready to try something to eat. 1951: Patient tried a GI cocktail, vomited after taking it. More fluids and medications were administered. Patient was given more medications. 2014: Spoke with patient, patient states she is feeling much better. Able to tolerate water and ice chips without vomiting. Patient requesting discharge. Agrees to follow-up with PCP. Orders Ordered: ED Orders 09/28/19 16:20 Complete Blood Count AUTO DIFF Stat Comprehensive Metabolic Panel Stat 09/28/19 19:51 Test Urine Stat Discontinued Medications Al Hydrox/Mg Hydrox/Simethicone 20 ml/ Lidocaine HCl 15 ml 0 ml PO NOW ONE Stop: 09/28/19 19:01 Last Admin: 09/28/19 19:21 Dose: 35 ml Documented by: EZ Diphenhydramine HCl (Benadryl) 25 mg IV NOW ONE Stop: 09/28/19 19:52 Last Admin: 09/28/19 20:14 Dose: 25 mg Documented by: MARYCARMEN Sodium Chloride (Normal Saline 0.9%) 1,000 mls @ 1,000 mls/hr IV BOLUS PRN PRN Reason: Fluid replacement Last Infusion: 09/28/19 17:33 Dose: 0 mls/hr Documented by: Admin: 09/28/19 16:27 Dose: 1,000 mls/hr Documented by: MARYCARMEN Sodium Chloride (Normal Saline 0.9%) 1,000 mls @ 1,000 mls/hr IV BOLUS ONE Stop: 09/28/19 21:03 Last Infusion: 09/28/19 21:35 Dose: 0 mls/hr Documented by: Admin: 09/28/19 20:14 Dose: 1,000 mls/hr Documented by: MARYCARMEN Ketorolac Tromethamine (Toradol) 30 mg IV NOW ONE Stop: 09/28/19 16:16 Last Admin: 09/28/19 16:28 Dose: 30 mg Documented by: MARYCARMEN Lorazepam (Ativan) 0.5 mg IV NOW ONE Stop: 09/28/19 19:52 Last Admin: 09/28/19 20:15 Dose: 0.5 mg Documented by: MARYCARMEN Metoclopramide HCl (Reglan) 10 mg IV NOW ONE Stop: 09/28/19 17:09 Last Admin: 09/28/19 17:19 Dose: 10 mg Documented by: MARYCARMEN Ondansetron HCl (Zofran) 4 mg IV NOW ONE Stop: 09/28/19 16:16 Last Admin: 09/28/19 16:27 Dose: 4 mg Documented by: MARYCARMEN Ondansetron HCl (Zofran Odt Prepack) 1 bottle MISC SEEINSTR ONE Stop: 09/28/19 22:11 Last Admin: 09/28/19 22:20 Dose: 1 bottle Documented by: MARYCARMEN Pantoprazole Sodium (Protonix) 40 mg IV NOW ONE Stop: 09/28/19 17:23 Last Admin: 09/28/19 17:33 Dose: 40 mg Documented by: MARYCARMEN Consultations Consultation #1: Patient staffed with Dr. Powell, discussed test results and plan of care. Vital Signs Vital signs: Vital Signs - 8 hr 09/28/19 19:32 09/28/19 22:22 Temperature 98.7 F Pulse Rate 69 64 Respiratory Rate 20 16 Blood Pressure 110/72 Blood Pressure [Right Arm] 118/55 L Pulse Oximetry 100 97 <Miguel Powell, - Last Filed: 09/28/19 23:01> Orders Ordered: ED Orders 09/28/19 16:20 Complete Blood Count AUTO DIFF Stat Comprehensive Metabolic Panel Stat 09/28/19 19:51 Test Urine Stat Discontinued Medications Al Hydrox/Mg Hydrox/Simethicone 20 ml/ Lidocaine HCl 15 ml 0 ml PO NOW ONE Stop: 09/28/19 19:01 Last Admin: 09/28/19 19:21 Dose: 35 ml Documented by: EZ Diphenhydramine HCl (Benadryl) 25 mg IV NOW ONE Stop: 09/28/19 19:52 Last Admin: 09/28/19 20:14 Dose: 25 mg Documented by: MARYCARMEN Sodium Chloride (Normal Saline 0.9%) 1,000 mls @ 1,000 mls/hr IV BOLUS PRN PRN Reason: Fluid replacement Last Infusion: 09/28/19 17:33 Dose: 0 mls/hr Documented by: Admin: 09/28/19 16:27 Dose: 1,000 mls/hr Documented by: MARYCARMEN Sodium Chloride (Normal Saline 0.9%) 1,000 mls @ 1,000 mls/hr IV BOLUS ONE Stop: 09/28/19 21:03 Last Infusion: 09/28/19 21:35 Dose: 0 mls/hr Documented by: Admin: 09/28/19 20:14 Dose: 1,000 mls/hr Documented by: MARYCARMEN Ketorolac Tromethamine (Toradol) 30 mg IV NOW ONE Stop: 09/28/19 16:16 Last Admin: 09/28/19 16:28 Dose: 30 mg Documented by: MARYCARMEN Lorazepam (Ativan) 0.5 mg IV NOW ONE Stop: 09/28/19 19:52 Last Admin: 09/28/19 20:15 Dose: 0.5 mg Documented by: MARYCARMEN Metoclopramide HCl (Reglan) 10 mg IV NOW ONE Stop: 09/28/19 17:09 Last Admin: 09/28/19 17:19 Dose: 10 mg Documented by: MARYCARMEN Ondansetron HCl (Zofran) 4 mg IV NOW ONE Stop: 09/28/19 16:16 Last Admin: 09/28/19 16:27 Dose: 4 mg Documented by: MARYCARMEN Ondansetron HCl (Zofran Odt Prepack) 1 bottle MISC SEEINSTR ONE Stop: 09/28/19 22:11 Last Admin: 09/28/19 22:20 Dose: 1 bottle Documented by: MARYCARMEN Pantoprazole Sodium (Protonix) 40 mg IV NOW ONE Stop: 09/28/19 17:23 Last Admin: 09/28/19 17:33 Dose: 40 mg Documented by: MARYCARMEN Vital Signs Vital signs: Vital Signs - 8 hr 09/28/19 19:32 09/28/19 22:22 Temperature 98.7 F Pulse Rate 69 64 Respiratory Rate 20 16 Blood Pressure 110/72 Blood Pressure [Right Arm] 118/55 L Pulse Oximetry 100 97 MDM - Nausea/Vomiting/Diarrhea <JUAN C Bob - Last Filed: 09/28/19 21:56> Medical Records Attestation: I reviewed the patient's medical records. Lab Data Attestation: I reviewed the patient's lab results. Result diagrams: 09/28/19 16:20 09/28/19 16:20 Labs: Lab Results 09/28/19 09/28/19 09/28/19 Range/Units 16:20 16:20 19:51 WBC 16.3 H (4.5-11.0) X10^3/uL RBC 4.75 (4.0-5.2) X10^6/uL Hgb 14.3 (12.0-16.0) g/dL Hct 41.8 (36-46) % MCV 88.0 (80-100) fL MCH 30.2 (26-34) PG MCHC 34.3 (30-36) % RDW 12.0 (11.6-14.8) % Plt Count 267 (150-400) X10^3/uL Neut % (Auto) 96.4 H (50-75) % Lymph % (Auto) 2.1 L (25-40) % [place] % (Auto) 1.3 L (3-14) % Eos % (Auto) 0.0 L (2-4) % Baso % (Auto) 0.2 (0-2) % Neut # (Auto) 52749 H (1653-1189) /uL Lymph # (Auto) 300 L (7037-2924) /uL [place] # (Auto) 200 (0-900) /uL Eos # (Auto) 0 (0-450) /uL Baso # (Auto) 0 (0-100) /uL Sodium 140 (137-145) mmol/L Potassium 4.1 (3.4-5.1) mmol/L Chloride 104 (98-107) mmol/L Carbon Dioxide 25 (22-32) mmol/L BUN 10 (7-17) mg/dL Creatinine 0.64 (0.52-1.04) mg/dL Estimated GFR > 60.0 (>60) mL/min BUN/Creatinine Ratio 15.6 (6-22) Glucose 140 H (70-100) mg/dL Calcium 9.9 (8.4-10.2) mg/dL Total Bilirubin 0.3 (0.2-1.3) mg/dL AST 24 (14-36) IU/L ALT 23 (<35) IU/L Alkaline Phosphatase 81 (38-126) U/L Total Protein 8.4 H (6.3-8.2) g/dL Albumin 5.0 (3.5-5.0) g/dL Globulin 3.4 (1.7-4.1) g/dL Albumin/Globulin Ratio 1.5 (1.0-2.8) Urine Test Negative (Negative) Urine Dip Bedside Urine Glucose Negative Bedside Urine Bilirubin - Negative Bedside Urine Ketone +++ 80 Urine Specific Ashley 1.010 Bedside Urine Occult Blood ++ Bedside Urine Protein +/- 15 Bedside Urine Urobilinogen - Negative Bedside Urine Nitrite - Negative Bedside Urine Leukocytes - Negative Esterase MDM Narrative Medical decision making narrative: 19-year-old female with a history of cyclic vomiting presents emergency department for onset of vomiting a.m. this morning. Patient presents hemodynamically stable, non tachycardic, afebrile, does not complain of abdominal pain. Patient is seen vomiting in the emergency department. Improved symptoms after fluid and Zofran however continues to occasionally vomit. Patient was given Reglan, p.o. trial failed with GI cocktail. Patient was given Protonix, fluids, Ativan, and Benadryl. This point patient was able to tolerate p.o. fluid and ice chips. Patient was requesting go home. Continued to deny any abdominal pain, abdominal exam non-remarkable, this decreases suspicion for acute inner abdominal etiology (such as appendicitis, blockage, or infection) no indication for imaging or CT. White count was slightly elevated, this may be due to vomiting. Urine without leukocytes or nitrates. Small amount of blood and ketones known, urine sent to lab for possible culture if indicated, patient is asymptomatic that dysuria. Patient was discharged with Phenergan suppositories and p.o. Zofran to help with vomiting. Patient was given very strict return precautions for new or worsening symptoms. Patient agrees to plan of care verbalized understanding. <Miguel Powell, DO - Last Filed: 09/28/19 23:01> Lab Data Labs: Lab Results 09/28/19 09/28/19 09/28/19 Range/Units 16:20 16:20 19:51 WBC 16.3 H (4.5-11.0) X10^3/uL RBC 4.75 (4.0-5.2) X10^6/uL Hgb 14.3 (12.0-16.0) g/dL Hct 41.8 (36-46) % MCV 88.0 (80-100) fL MCH 30.2 (26-34) PG MCHC 34.3 (30-36) % RDW 12.0 (11.6-14.8) % Plt Count 267 (150-400) X10^3/uL Neut % (Auto) 96.4 H (50-75) % Lymph % (Auto) 2.1 L (25-40) % [place] % (Auto) 1.3 L (3-14) % Eos % (Auto) 0.0 L (2-4) % Baso % (Auto) 0.2 (0-2) % Neut # (Auto) 50152 H (7595-4576) /uL Lymph # (Auto) 300 L (0414-5954) /uL [place] # (Auto) 200 (0-900) /uL Eos # (Auto) 0 (0-450) /uL Baso # (Auto) 0 (0-100) /uL Sodium 140 (137-145) mmol/L Potassium 4.1 (3.4-5.1) mmol/L Chloride 104 (98-107) mmol/L Carbon Dioxide 25 (22-32) mmol/L BUN 10 (7-17) mg/dL Creatinine 0.64 (0.52-1.04) mg/dL Estimated GFR > 60.0 (>60) mL/min BUN/Creatinine Ratio 15.6 (6-22) Glucose 140 H (70-100) mg/dL Calcium 9.9 (8.4-10.2) mg/dL Total Bilirubin 0.3 (0.2-1.3) mg/dL AST 24 (14-36) IU/L ALT 23 (<35) IU/L Alkaline Phosphatase 81 (38-126) U/L Total Protein 8.4 H (6.3-8.2) g/dL Albumin 5.0 (3.5-5.0) g/dL Globulin 3.4 (1.7-4.1) g/dL Albumin/Globulin Ratio 1.5 (1.0-2.8) Urine Test Negative (Negative) Urine Dip Bedside Urine Glucose Negative Bedside Urine Bilirubin - Negative Bedside Urine Ketone +++ 80 Urine Specific Ashley 1.010 Bedside Urine Occult Blood ++ Bedside Urine Protein +/- 15 Bedside Urine Urobilinogen - Negative Bedside Urine Nitrite - Negative Bedside Urine Leukocytes - Negative Esterase Discharge Plan Departure Patient Disposition: Home Clinical Impression: Vomiting Qualifiers: Vomiting type: unspecified Vomiting Intractability: non-intractable Nausea presence: with nausea Qualified Code(s): R11.2 - Nausea with vomiting, unspecified Discharge Date/Time: 09/28/19 22:22 Instructions: DI for Vomiting -- Adult Activity Restrictions/Additional Instructions: Thank you for entrusting me with your care today. As discussed, I prescribed you a suppository and in oral medication to take if you continue to feel nauseated and/or vomit. I suggest taking the suppository, if you continued to have nausea and vomiting then take the oral medication and 25 mg of Benadryl. Please follow up with your primary care provider in the next week for further evaluation. Return emergency department if you develop new or worsening symptoms such as severe pain, uncontrollable vomiting, chest pain, shortness of breath, high fevers, or any other concerns. Prescriptions: New ondansetron 4 mg tablet,disintegrating 4 mg PO Q8H PRN (Reason: nausea and vomiting) Qty: 14 RF: 0 promethazine 25 mg suppository 25 mg SC Q6H PRN (Reason: Nausea vomiting) Qty: 12 RF: 0 No Action ondansetron 4 mg tablet,disintegrating 4 mg PO Q6H PRN (Reason: nausea and vomiting) Qty: 20 RF: 0 metoclopramide HCl 10 mg tablet 10 mg PO Q6H PRN (Reason: nausea and vomiting) Qty: 14 RF: 0 promethazine 25 mg suppository 25 mg SC Q4-6H PRN (Reason: nausea and vomiting) Qty: 12 RF: 0 hyoscyamine sulfate 0.125 mg tablet 0.125 mg PO BID-QID PRN (Reason: dyspepsia) Qty: 20 RF: 0 Referrals: Demian Maurer MD [Primary Care Provider] - <iMguel Powell DO - Last Filed: 09/28/19 23:01> [facility] Dr Powell Co-Sign Statement: I was available for consultation during this patient's emergency department visit. This chart is signed by myself for administrative purposes only. I did not have direct contact with this patient during this visit. They were seen independently by the APC.
[2019-09-28] MEDS: PANTOPRAZOLE 40 MG VIAL IV (17:33)
[2019-09-28] MEDS: MAG HYDROX/ALUMINUM/SIMETH SUS 20 ML, LIDOCAINE VISCOUS 2% 15 ML PO (19:21)
[2019-09-28 19:32] VITALS: BP 118/55; PULSE 69; RESP 20; TEMP 37.1; O2SAT 100
[2019-09-28 20:13] LABS: Pregnancy Test Urine Negative (Negative)
[2019-09-28] MEDS: diphenhydrAMINE 50 MG/ML VIAL 25 MG IV (20:14)
[2019-09-28] MEDS: LORazepam 2 MG/ML INJ 0.5 MG IV (20:15)
[2019-09-28] MEDS: ONDANSETRON 4 MG ODT PREPACK 1 BOTTLE MISC (22:20)
[2019-09-28 22:22] VITALS: BP 110/72; PULSE 64; RESP 16; O2SAT 97
== END 2019-09-28 22:22 | disposition home or self-care (01) ==
PROVIDERS: Emergency Provider Nurse Practitioner; Family Provider Family Medicine; PCP Family Medicine
DX: R11.2 Nausea with vomiting, unspecified (principal)
CPT/HCPCS: 36415; 80053; 81003; 81025; 85025; 96361; 96374; 96375; 99284; C9113; J1200; J1885; J2060; J2405; J2765

== ENCOUNTER → 2019-10-07 10:20 | Outpatient (CLI) | payer OTHER, MEDICAID, SELFPAY ==
--- NOTE | 2019-10-07 10:22 | DI.CT.S_ITS ---
PROCEDURE: CT ABDOMEN PELVIS W CON INDICATIONS: VOMITING AND DIARRHEA TECHNIQUE: After the administration of oral and intravenous contrast, 5 mm thick sections acquired from the diaphragms to the symphysis. 5 mm thick coronal and sagittal reformats were performed. For radiation dose reduction, the following was used: automated exposure control, adjustment of mA and/or kV according to patient size. COMPARISON: None. FINDINGS: Image quality: Excellent. ABDOMEN: Lung bases: Lung bases are clear. Heart size is normal. Solid organs: Liver is normal in size and enhancement. Gallbladder is unremarkable. Biliary system is non-dilated. Pancreas enhances normally. Spleen is normal in size and enhancement. No adrenal nodules. Kidneys are normal in size and enhancement, without hydronephrosis. Peritoneum and bowel: Short segment small bowel to small bowel intussusception in the left abdomen, (09/12). No bowel obstruction. Medication tablets in the rectum and distal colon. Stool in distal colon is somewhat prominent. The appendix is normal in caliber. No free fluid or air. Nodes and vessels: No retroperitoneal or mesenteric adenopathy. Aorta and inferior vena cava are normal in caliber. Miscellaneous: No ventral hernias. PELVIS: Genitourinary: Bladder wall thickness is normal. Retroverted uterus. IUD in the uterus. Numerous ovarian follicles bilaterally. Ovaries are again mildly enlarged. Miscellaneous: No inguinal hernias or adenopathy. Bones: No suspicious bony lesions. No vertebral body compression fractures. IMPRESSION: 1. Short segment small bowel to small bowel intussusception in the left abdomen. The clinical significance of this finding is uncertain as this is generally a transient in nature. No small bowel obstruction. 2. Medication tablets in the distal colon and rectum. This could be due to a rapid bowel transit. 3. No free fluid. 4. Mildly enlarged ovaries with numerous follicles again seen. -Consider further imaging evaluation with pelvic ultrasound. Dictated by: Peter Brody M.D. on 10/07/2019 at 12:16 Approved by: Peter Brody M.D. on 10/07/2019 at 12:26
== END ==
PROVIDERS: Family Provider Family Medicine; PCP Family Medicine; Referring Provider Family Medicine; Visit Provider Family Medicine
DX: R11.10 Vomiting, unspecified (principal); R19.7 Diarrhea, unspecified; K56.1 Intussusception; N83.8 Other noninflammatory disorders of ovary, fallopian tube and broad ligament
CPT/HCPCS: 74177; Q9967

== ENCOUNTER → 2019-10-18 14:51 | Outpatient (CLI) | payer OTHER, MEDICAID, SELFPAY ==
[2019-10-19 21:42] LABS: COVID19 Sendout Not Detected (Not Detect)
== END ==
PROVIDERS: Family Provider Family Medicine; PCP Family Medicine; Visit Provider Registered Nurse
DX: Z01.812 Encounter for preprocedural laboratory examination (principal)
CPT/HCPCS: 87635

== ENCOUNTER → 2019-10-26 08:31 | Outpatient (CLI) | payer OTHER, MEDICAID, SELFPAY ==
[2019-10-27 07:37] LABS: COVID19 Sendout Not Detected (Not Detect)
== END ==
PROVIDERS: PCP Family Medicine; Visit Provider Physician Assistant
DX: Z01.818 Encounter for other preprocedural examination (principal)
CPT/HCPCS: 87635

== ENCOUNTER 2019-10-28 07:31 | Day surgery (SDC) | payer OTHER, MEDICAID, SELFPAY ==
[2019-10-28] VITALS (7 sets, daily range): BP systolic 91–106; BP diastolic 50–70; PULSE 53–67; RESP 14–20; TEMP 36.4–36.7; O2SAT 95–100; BMI 21.6
--- NOTE | 2019-10-28 | PATH_ITS ---
[facility] Accession Number: [id number] . 01 Material submitted: . PART A: gastrointestinal site - RANDOM GASTRIC BIOPSIES PART B: esophagus - RANDOM ESOPHAGUS BIOPSY . 02 Diagnosis: A. Stomach, Random Biopsies: Body-type mucosa with mild chronic gastritis. Negative for Helicobacter by immunohistochemistry. Negative for intestinal metaplasia. Negative for dysplasia and malignancy. . B. Esophagus, Random Biopsy: Squamous epithelium with no diagnostic abnormality. Intraepithelial eosinophils are not increased. Negative for dysplasia and malignancy. [facility] 10/30/2019 1411 Local . 02 Electronically signed: . Cristine Coates MD, Pathologist NPI- [id number] . 01 Gross description: . Part A: RANDOM GASTRIC BIOPSIES: Received in formalin are 3 fragment(s) of krueger, soft tissue measuring 0.1 x 0.1 x 0.1 cm to 0.3 x 0.3 x 0.2 cm submitted entirely in 1 cassette(s) Part B: RANDOM ESOPHAGUS BIOPSY: Received in formalin are 4 fragment(s) of krueger, soft tissue measuring 0.1 x 0.1 x 0.1 cm to 0.2 x 0.1 x 0.1 cm submitted entirely in 1 cassette(s) /[facility] 10/28/2019 205 Local . 02 Microscopic: . A. An immunohistochemical stain was performed to evaluate for Helicobacter organisms and is negative. The control stain showed appropriate reactivity. . * This test was developed and its performance characteristics determined by [employer]. It has not been cleared or approved by the U.S. Food and Drug Administration. The FDA has determined that such clearance or approval is not necessary. This test is used for clinical purposes. It should not be regarded as investigational or for research. . 02 Pathologist provided ICD-10: R63.4, R11.0 . 02 CPT . 623958, 288754, [id number] Performed at: 01 [facility] [address] [place] [address], [place], [place] [id number] MD Ever Yun MD Phone: [phone] Performed at: [facility] [address] [place], [place] [id number] MD Cristine Coates MD Phone: [phone]
[2019-10-28] MEDS: LACTATED RINGERS 1,000 ML 200 ML IV (08:01)
--- NOTE | 2019-10-28 08:23 | PM.PREOP ---
Pre-operative Note COVID-19 COVID-19 status: Negative Result date/Date tested (Pos, Neg/Pending): 10/26/19 Interval Note History & Physical reviewed/Exam performed by Physician: Yes Changes to H&P: No ASA Class (for procedural sedation): II
--- NOTE | 2019-10-28 08:53 | P.OP.ENDO_ITS ---
Operative Date/Time/Diagnoses Date of procedure: 10/28/19 Time of procedure: 08:53 Pre-op diagnosis: Weight loss, nausea Post-op diagnosis: same Procedure & Clinicians Study performed: Esophagoduodenoscopy Same procedure as scheduled: Yes Indications: 19-year-old female with 50 lb unintentional weight loss over the past several months associated with significant nausea vomiting Surgeon: Dimitrios Freed Procedure Notes SCOAP/Timeout: Performed Procedure in detail: Patient placed in left lateral decubitus position. Time out was performed. Procedural sedation was administered with Versed and Fentanyl. A bite block was placed. the scope was inserted into the mouth and advanced through the esophagus and into the stomach. The pylorus was intubated and the duodenum was normal. The scope was retroflexed within the stomach and there was no hiatal hernia. There were no gastric ulcers there was mild gastritis and mild esophagitis. Random biopsies of the stomach and esophagus were taken with forceps. Hemostasis was observed.. The Z line was seen at 30 cm from the incisions. There was no ventura's esophagitis no esophageal masses or strictures. Stomach was desufflated and scope removed. Patient tolerated proc edure well. Sedation minutes: 14 Findings: gastritis Specimen(s): other (Random gastric, random esophageal biopsy) Complications: none Impression: Gastritis, esophagitis Post-procedure Recommendations: Prescription for (Protonix) Disposition: same day surgery
[2019-10-28] MEDS: MIDAZOLAM 5 MG/5 ML VIAL IV (08:55)
[2019-10-28] MEDS: fentaNYL 250 MCG/5 ML INJ IV (08:56)
[2019-10-28] MEDS: LIDOCAINE 4% SOLN 50 ML 20 ML TOP (08:57)
--- NOTE | 2019-10-28 09:23 | SUR.PHASEI ---
tolerating PO ice chips, no difficulty swallowing, denies discomfort. alert, oriented
== END 2019-10-28 09:45 | disposition home or self-care (01) ==
PROVIDERS: PCP Family Medicine; Referring Provider Surgery; Visit Provider Surgery
PROC: 0DJ08ZZ Inspection of Upper Intestinal Tract, Via Natural or Artificial Opening Endoscopic (ICD-10-PCS; CPT 43235; principal; 2019-10-28 08:30)
DX: K20.9 Esophagitis, unspecified (principal); F17.210 Nicotine dependence, cigarettes, uncomplicated; K29.70 Gastritis, unspecified, without bleeding; K44.9 Diaphragmatic hernia without obstruction or gangrene
CPT/HCPCS: 43239; 99152; J2250; J3010

== ENCOUNTER 2020-08-29 13:00 | Emergency (ER) | payer OTHER, MEDICAID, SELFPAY ==
[2020-08-29 13:42] VITALS: BP 117/77; PULSE 77; RESP 18; TEMP 37.1; O2SAT 100; BMI 20.1
--- NOTE | 2020-08-29 13:43 | ED_ITS ---
HPI - Abdominal Pain General Chief Complaint: Abdominal Pain Stated Complaint: N/V, lightheaded, dizzy Time Seen by Provider: 08/29/20 13:10 Source: patient and family Mode of arrival: Ambulatory Limitations: no limitations History of Present Illness HPI narrative: 20-year-old female smoker and habitual user of marijuana presents with her significant other and a chief complaint of persistent nausea and vomiting which has led her to become slightly dizzy, lightheaded and fatigued. She states she has been dealing with this for quite some time and there is some mention to the potential of a bitch will marijuana use as a contributing factor. She has established with a freight brake operator and had an EGD which was unremarkable and the plan is to perform a colonoscopy relatively soon. She typically does well with ondansetron and Phenergan suppositories but has run out. She denies any fever or chills. She denies any chest pain, shortness of breath. She has no abdominal pain, dysuria, frequency, urgency, diarrhea or vaginal complaints such as bleeding, discharge. She is able to keep liquids down but vomits frequently. She denies any hematemesis Onset (ago): hour(s) Radiation: none Relieving factors: nothing Exacerbating factors: nothing Associated symptoms: nausea and vomiting Related Data Previous Rx's Medication Instructions Recorded metoclopramide HCl 10 mg PO Q6H PRN #14 tab 05/14/19 ondansetron 4 mg PO Q6H PRN #20 tab 05/14/19 promethazine 25 mg NC Q4-6H PRN #12 each 05/14/19 hyoscyamine sulfate 0.125 mg PO BID-QID PRN #20 tab 05/15/19 pantoprazole [Protonix] 20 mg PO DAILY #90 tab 10/28/19 ondansetron HCl [Zofran] 4 mg PO Q8H PRN #10 tab 08/29/20 promethazine 25 mg NC Q4-6H PRN #12 ea 08/29/20 Allergies Allergy/AdvReac Type Severity Reaction Status Date / Time No Known Drug Allergies Allergy Verified 08/29/20 13:47 Review of Systems Constitutional Constitutional: Denies chills, Denies fatigue, Denies fever(s), Denies frequent falls, Denies lethargy and Reports weakness Eyes Eyes: Denies change in vision, Denies eye discharge, Denies irritation and Denies loss of vision ENT Ears, Nose, Mouth, and Throat: Denies change in voice, Denies dizziness, Denies neck pain, Denies sore throat and Denies throat swelling Cardiovascular Cardiovascular: Denies chest pain, Denies irregular heart rhythm, Denies lightheadedness, Denies palpitations, Denies dyspnea, Denies dyspnea on exertion and Denies orthopnea Respiratory Respiratory: Denies cough, Denies dyspnea, Denies dyspnea on exertion and Denies wheezing Gastrointestinal Gastrointestinal: Denies abdominal pain, Denies change in bowel habits, Denies diarrhea, Reports nausea and Reports vomiting Musculoskeletal Musculoskeletal: Denies neck pain and Denies numbness Integumentary/Breasts Skin/Breast: Denies pruritus, Denies erythema, Denies rash and Denies wounds Neurologic Neurologic: Denies behavioral changes, Denies confusion, Denies dizziness, Denies frequent falls, Denies loss of vision, Denies numbness and Reports weakness Psychiatric Psychiatric: Denies anxiety, Denies behavioral changes, Denies confusion, Denies depression, Denies homicidal ideation and Denies suicidal ideation Endocrine Endocrine: Denies fatigue, Denies flushing and Denies palpitations Hematologic/Lymphatic Hematologic/Lymphatic: Denies easy bruising Allergic/Immunologic Allergic/Immunologic: Denies urticaria, Denies throat swelling and Denies wheezing Patient History Medical History History of depression Surgical History No pertinent past surgical history Family History Other Family history non-contributory Social History household members: significant other Smoking Status: Current some day smoker alcohol intake: current additional social history: no EtOH or tobacco, occasional THC Smoking Status: Current every day smoker alcohol intake frequency: 0-2 drinks per day Substance Use Type: marijuana Exam Narrative Exam Narrative: GENERAL: [20] year old patient appears stated age. Well- nourished, well-developed patient, in mild distress. Holding an empty emesis bag HEAD: Atraumatic. Normocephalic. EYES: Pupils equal round and reactive. Extraocular motions intact. No scleral icterus. No injection or drainage. ENT: Nose without bleeding, purulent drainage. Throat without erythema, tonsillar hypertrophy or exudate. Airway patent. NECK: Trachea midline. Non tender CARDIOVASCULAR: Regular rate and rhythm without murmurs, gallops, or rubs. RESPIRATORY: Clear to auscultation. Breath sounds equal bilaterally. No wheezes, rales, or rhonchi. GASTROINTESTINAL: Abdomen soft, non-tender, nondistended. EXTREMITIES: No edema or joint tenderness. BACK: Nontender without deformity or crepitance. No flank tenderness. NEURO: AOx3. SKIN: No rash or erythema of visible areas Initial Vital Signs Initial Vital Signs: Vital Signs Temperature 98.7 F 08/29/20 13:42 Pulse Rate 77 08/29/20 13:42 Respiratory Rate 18 08/29/20 13:42 Blood Pressure 117/77 08/29/20 13:42 Pulse Oximetry 100 08/29/20 13:42 Course Orders Ordered: Discontinued Medications Sodium Chloride (Normal Saline 0.9%) 1,000 mls @ 1,000 mls/hr IV BOLUS ONE Stop: 08/29/20 16:17 Last Infusion: 08/29/20 16:33 Dose: 0 mls/hr Documented by: Admin: 08/29/20 15:24 Dose: 1,000 mls/hr Documented by: LUIS Ondansetron HCl (Ondansetron 4 Mg/2 Ml Inj) 4 mg IV Q4HR PRN PRN Reason: Nausea And Vomiting Last Admin: 08/29/20 15:24 Dose: 4 mg Documented by: LUIS Ondansetron HCl (Ondansetron 4 Mg Odt Prepack) 1 bottle MISC SEEINSTR ONE Stop: 08/29/20 17:31 Last Admin: 08/29/20 17:45 Dose: 1 bottle Documented by: LUIS Promethazine HCl (Promethazine 25 Mg Prepack) 1 bottle MISC SEEINSTR ONE Stop: 08/29/20 17:31 Last Admin: 08/29/20 17:45 Dose: 1 bottle Documented by: LUIS MDM - Abdominal Pain Lab Data Result diagrams: 08/29/20 14:58 08/29/20 14:58 Labs: Lab Results 08/29/20 08/29/20 08/29/20 Range/Units 14:58 14:58 14:58 WBC 14.3 H (4.5-11.0) X10^3/uL RBC 4.75 (4.0-5.2) X10^6/uL Hgb 14.4 (12.0-16.0) g/dL Hct 43.4 (36-46) % MCV 91.2 (80-100) fL MCH 30.3 (26-34) PG MCHC 33.2 (30-36) % RDW 12.1 (11.6-14.8) % Plt Count 286 (150-400) X10^3/uL Neut % (Auto) 94.7 H (50-75) % Lymph % (Auto) 2.7 L (25-40) % [place] % (Auto) 2.3 L (3-14) % Eos % (Auto) 0.0 L (2-4) % Baso % (Auto) 0.3 (0-2) % Neut # (Auto) 95045 H (6920-8741) /uL Lymph # (Auto) 400 L (2546-7617) /uL [place] # (Auto) 300 (0-900) /uL Eos # (Auto) 0 (0-450) /uL Baso # (Auto) 0 (0-100) /uL PT 13.5 H (10.1-12.7) SECONDS INR 1.2 (0.9-1.3) APTT 32 (26.4-36.2) SECONDS Sodium 142 (137-145) mmol/L Potassium 4.7 (3.4-5.1) mmol/L Chloride 104 (98-107) mmol/L Carbon Dioxide 26 (22-32) mmol/L BUN 9 (7-17) mg/dL Creatinine 0.55 (0.52-1.04) mg/dL Estimated GFR > 60.0 (>60) mL/min BUN/Creatinine Ratio 16.4 (6-22) Glucose 132 H (70-100) mg/dL Calcium 10.4 H (8.4-10.2) mg/dL Total Bilirubin 0.4 (0.2-1.3) mg/dL AST 43 H (14-36) IU/L ALT 33 (<35) IU/L Alkaline Phosphatase 70 (38-126) U/L Total Protein 8.7 H (6.3-8.2) g/dL Albumin 5.2 H (3.5-5.0) g/dL Globulin 3.5 (1.7-4.1) g/dL Albumin/Globulin Ratio 1.5 (1.0-2.8) Lipase 24 (23-300) U/L Point of care testing: Point of Care Testing Test Results Negative Urine Dip Bedside Urine Glucose Negative Bedside Urine Bilirubin - Negative Bedside Urine Ketone ++ 40 Urine Specific [place] 1.020 Bedside Urine Occult Blood - Negative Bedside Urine pH 7 Bedside Urine Protein + 30 Bedside Urine Urobilinogen - Negative Bedside Urine Nitrite - Negative Bedside Urine Leukocytes - Negative Esterase MDM Narrative Medical decision making narrative: Patient feeling significant improvement after above-stated therapies. Slight bump in white cells most likely a stress re sponse from vomiting earlier today. She received IV fluids antiemetics, as reassuring exam and vital signs. No emesis in the department. She ambulates without difficulty and admittedly feels significant improvement. We discussed the possibility of performing imaging but agree it is unlikely to change the course. She has been given extensive return precautions and has had questions answered to her apparent satisfaction Discharge Plan Departure Patient Disposition: Home Clinical Impression: Cyclical vomiting Instructions: DI for Vomiting -- Adult Activity Restrictions/Additional Instructions: *You have been diagnosed with [cyclic vomiting] *What to do: *Take medications as directed *Follow up with your primary care provider in 2-3 days, call for an appointment. Let them know you were seen in the Emergency Department and that we ask that you be seen in follow up *Return to ER if you should have any new, worsening or concerning symptoms Prescriptions: New promethazine 25 mg suppository 25 mg NC Q4-6H PRN (Reason: nausea and vomiting) Qty: 12 RF: 0 ondansetron HCl [Zofran] 4 mg tablet 4 mg PO Q8H PRN (Reason: nausea and vomiting) Qty: 10 RF: 0 No Action ondansetron 4 mg tablet,disintegrating 4 mg PO Q6H PRN (Reason: nausea and vomiting) Qty: 20 RF: 0 metoclopramide HCl 10 mg tablet 10 mg PO Q6H PRN (Reason: nausea and vomiting) Qty: 14 RF: 0 promethazine 25 mg suppository 25 mg NC Q4-6H PRN (Reason: nausea and vomiting) Qty: 12 RF: 0 hyoscyamine sulfate 0.125 mg tablet 0.125 mg PO BID-QID PRN (Reason: dyspepsia) Qty: 20 RF: 0 pantoprazole [Protonix] 20 mg tablet,delayed release (DR/EC) 20 mg PO DAILY Qty: 90 RF: 0 Referrals: Demian Maurer MD [Primary Care Provider] -
[2020-08-29 15:12] LABS: Add Manual Diff / Slide Review NO; Basophils Absolute Auto 0 /uL (0-100); Basophils Percent Auto 0.3 % (0-2); Eosinophils Absolute Auto 0 /uL (0-450); Hematocrit 43.4 % (36-46); Hemoglobin 14.4 g/dL (12.0-16.0); Lymphocytes Absolute Auto 400 /uL (1100-4500); Lymphocytes Percent Auto 2.7 % (25-40); Mean Corpuscular HGB Conc 33.2 % (30-36); Mean Corpuscular Hemoglobin 30.3 PG (26-34); Mean Corpuscular Volume 91.2 fL (80-100); Monocytes Absolute Auto 300 /uL (0-900); Monocytes Percent Auto 2.3 % (3-14); Neutrophils Absolute Auto 13500 /uL (1500-7000); Neutrophils Percent Auto 94.7 % (50-75); Platelet Count 286 X10^3/uL (150-400); Red Blood Cell Count 4.75 X10^6/uL (4.0-5.2); Red Cell Distribution Width 12.1 % (11.6-14.8); White Blood Cell Count 14.3 X10^3/uL (4.5-11.0)
[2020-08-29] MEDS: SODIUM CHLORIDE 0.9% 1,000 ML 1000 ML IV (15:24)
[2020-08-29] MEDS: ONDANSETRON 4 MG/2 ML INJ IV (15:24)
[2020-08-29 15:49] LABS: INR 1.2 (0.9-1.3); Prothrombin Time 13.5 SECONDS (10.1-12.7)
[2020-08-29 15:52] LABS: PTT Partial Thromboplastin Tim 32 SECONDS (26.4-36.2)
[2020-08-29 15:53] LABS: Alanine Aminotransferase 33 IU/L (<35); Albumin 5.2 g/dL (3.5-5.0); Albumin Globulin Ratio 1.5 (1.0-2.8); Alkaline Phosphatase 70 U/L (38-126); Aspartate Aminotransferase 43 IU/L (14-36); BUN Creatinine Ratio 16.4 (6-22); Bilirubin Total 0.4 mg/dL (0.2-1.3); Blood Urea Nitrogen 9 mg/dL (7-17); Calcium 10.4 mg/dL (8.4-10.2); Carbon Dioxide 26 mmol/L (22-32); Chloride 104 mmol/L (98-107); Estimated Glomerular Filt Rate > 60.0 mL/min (>60); Globulin 3.5 g/dL (1.7-4.1); Glucose 132 mg/dL (70-100); HEMOLYSIS < 15 (0-50); Lipase 24 U/L (23-300); Potassium 4.7 mmol/L (3.4-5.1); Sodium 142 mmol/L (137-145); Total Protein 8.7 g/dL (6.3-8.2)
[2020-08-29 17:16] VITALS: BP 130/83; PULSE 58; RESP 16; O2SAT 97
[2020-08-29] MEDS: PROMETHAZINE 25 MG PREPACK 1 BOTTLE MISC (17:45)
[2020-08-29] MEDS: ONDANSETRON 4 MG ODT PREPACK 1 BOTTLE MISC (17:45)
== END 2020-08-29 17:50 | disposition home or self-care (01) ==
PROVIDERS: Emergency Provider Emergency Medicine; PCP Family Medicine
DX: R11.15 Cyclical vomiting syndrome unrelated to migraine (principal); R42 Dizziness and giddiness
CPT/HCPCS: 36415; 80053; 81003; 81025; 83690; 85025; 85610; 85730; 96361; 96374; 99283; 99284; J2405

== ENCOUNTER 2024-04-22 12:32 | Emergency (ER) | payer OTHER, SELFPAY ==
[2024-04-22] VITALS (9 sets, daily range): BP systolic 140–148; BP diastolic 82–84; PULSE 55–71; RESP 16; TEMP 36.2; O2SAT 94–98
[2024-04-22] MEDS: ONDANSETRON 4 MG/2 ML INJ IV (13:06)
[2024-04-22 13:08] LABS: Add Manual Diff / Slide Review NO; Basophils Absolute Auto 0 /uL (0-100); Basophils Percent Auto 0.1 % (0-2); Eosinophils Absolute Auto 0 /uL (0-450); Eosinophils Percent Auto 0.1 % (2-4); Hemoglobin 15.4 g/dL (12.0-16.0); Lymphocytes Absolute Auto 600 /uL (1100-4500); Lymphocytes Percent Auto 7.8 % (25-40); Mean Corpuscular HGB Conc 34.3 % (30-36); Mean Corpuscular Hemoglobin 31.6 PG (26-34); Mean Corpuscular Volume 92.2 fL (80-100); Monocytes Absolute Auto 400 /uL (0-900); Monocytes Percent Auto 5.6 % (3-14); Neutrophils Absolute Auto 6900 /uL (1500-7000); Neutrophils Percent Auto 86.4 % (50-75); Platelet Count 356 X10^3/uL (150-400); Red Blood Cell Count 4.88 X10^6/uL (4.0-5.2); Red Cell Distribution Width 12.2 % (11.6-14.8); White Blood Cell Count 7.9 X10^3/uL (4.5-11.0)
[2024-04-22 13:14] LABS: Alanine Aminotransferase 36 IU/L (<35); Albumin 4.9 g/dL (3.5-5.0); Albumin Globulin Ratio 1.4 (1.0-2.8); Alkaline Phosphatase 69 U/L (38-126); Aspartate Aminotransferase 40 IU/L (14-36); Bilirubin Total 0.9 mg/dL (0.2-1.3); Blood Urea Nitrogen 13 mg/dL (7-17); Calcium 9.8 mg/dL (8.4-10.2); Carbon Dioxide 29 mmol/L (22-32); Chloride 101 mmol/L (98-107); Estimated Glomerular Filt Rate > 60 mL/min (>60); Globulin 3.5 g/dL (1.7-4.1); Glucose 115 mg/dL (70-100); HEMOLYSIS < 15 (0-50); Lipase 52 U/L (23-300); Potassium 3.7 mmol/L (3.4-5.1); Sodium 138 mmol/L (137-145); Total Protein 8.4 g/dL (6.3-8.2)
--- NOTE | 2024-04-22 13:40 | EKG_ITS ---
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
--- NOTE | 2024-04-22 15:26 | ED.NAVMDI ---
HPI - Nausea/Vomiting/Diarrhea General Chief complaint: Nausea/Vomiting/Diarrhea Stated complaint: vomiting t-2 Time Seen by Provider: 04/22/24 15:23 Source: patient, family, RN notes reviewed and old records reviewed Mode of arrival: Ambulatory Limitations: no limitations History of Present Illness HPI Narrative: 24-year-old female with history of cyclic vomiting who presents with complaint of vomiting starting Monday evening around 630 states that little bit better on Monday but has had persistent vomiting throughout the last 3 days without resolution. They did try some of the sublingual antinausea medication but continued to have some vomiting. No fevers, no chest pain or shortness of breath no syncope. Patient states little bit abdominal cramping but feels very similar to prior episodes. They do not feel like there was anything different going on. They have had some diarrhea which they state is also common. No bright red blood or melanotic stools. No urinary symptoms. Patient notes he did have the IUD swapped out last Monday. That has been going well. There physician did call to say they tested positive for bacterial vaginosis and we are going to call in an antibiotic. Patient states no daily prescriptions. No prior surgeries has had a prior EGD several years ago that was negative. No known drug allergies. Does use tobacco daily, drinks 1 alcoholic drink daily, uses marijuana regularly. No other recreational drugs. They state they did have vacation from marijuana for about 6-8 months after being told about hyperemesis cannabis but continued to have episodes so they returned to using marijuana. Patient is accompanied by family. Related Data Previous Rx's Medication Instructions Recorded metoclopramide HCl 10 mg tablet 10 mg PO Q6H PRN nausea and 05/14/19 vomiting #14 tabs ondansetron 4 mg disintegrating 4 mg PO Q6H PRN nausea and 05/14/19 tablet vomiting #20 tabs promethazine 25 mg rectal 25 mg KS Q4-6H PRN nausea and 05/14/19 suppository vomiting #12 ea hyoscyamine sulfate 0.125 mg tablet 0.125 mg PO BID-QID PRN dyspepsia 05/15/19 #20 tabs pantoprazole 20 mg tablet,delayed 20 mg PO DAILY #90 tabs 10/28/19 release (Protonix) ondansetron HCl 4 mg tablet 4 mg PO Q8H PRN nausea and 08/29/20 (Zofran) vomiting #10 tabs promethazine 25 mg rectal 25 mg KS Q4-6H PRN nausea and 08/29/20 suppository vomiting #12 ea promethazine 25 mg rectal 25 mg KS Q6H PRN nausea and 04/22/24 suppository vomiting #12 ea Allergies Allergy/AdvReac Type Severity Reaction Status Date / Time No Known Drug Allergies Allergy Verified 08/29/20 13:47 Review of Systems Review of Systems ROS Unobtainable: All systems reviewed & are unremarkable except as noted in HPI and below Patient History Medical History (Updated 04/22/24 @ 18:05 by Jennfier Mondragon DO) History of depression Surgical History No pertinent past surgical history Family History Other Family history non-contributory Social History household members: significant other Smoking Status: Current every day smoker alcohol intake: current additional social history: no EtOH or tobacco, occasional THC Smoking Status: Current every day smoker tobacco type: vaping alcohol intake frequency: 0-2 drinks per day Alcohol type: hard liquor Substance Use Type: marijuana Exam Narrative Exam Narrative: GENERAL: Alert and oriented x three, thin female in mild distress HEENT: Head normocephalic, atraumatic, EOMI, pupils reactive, face symmetric, moist mucous membranes NECK: Supple, full range of motion CARDIOVASCULAR: Regular rate and rhythm without murmurs, rubs or gallops. RESPIRATORY: Breath sounds equal bilaterally, no wheezes rales or rhonchi. ABDOMEN: Soft, nontender. Normoactive bowel sounds all 4 quadrants. No guarding or rebound, rigidity, no mass, small amount of clear emesis on the floor patient states this is actually from earlier and she knocked over her emesis bag. : No CVA tenderness EXTREMITIES: Normal range of motion, no clubbing or edema. Neurovascularly intact NEUROLOGICAL: Cranial nerves II through XII grossly intact. Moving all extremities SKIN: Warm, dry, no petechiae, no rashes or lesions. Initial Vital Signs Initial Vital Signs: Vital Signs Temperature 97.1 F L 04/22/24 12:34 Pulse Rate 68 04/22/24 12:34 Respiratory Rate 16 04/22/24 12:34 Blood Pressure 148/84 H 04/22/24 12:34 Pulse Oximetry 97 04/22/24 12:34 Oxygen Delivery Method Room Air 04/22/24 12:34 Course Orders Ordered: ED Orders 04/22/24 12:55 Complete Blood Count AUTO DIFF Stat Comprehensive Metabolic Panel Stat Lipase Stat Test Serum,Qual Stat 04/22/24 12:58 EKG-12 Lead Stat 04/22/24 18:04 Urine Microscopic Stat Discontinued Medications Droperidol (Droperidol 5 Mg/2 Ml Vial) 1.25 mg IV NOW ONE Stop: 04/22/24 15:45 Last Admin: 04/22/24 17:48 Dose: Not Given Documented By: NENA Haloperidol (Haloperidol 5 Mg/Ml Vial) 2 mg IV NOW ONE Stop: 04/22/24 16:02 Last Admin: 04/22/24 16:04 Dose: 2 mg Documented By: NENA Sodium Chloride (Normal Saline 0.9%) 1,000 mls @ 1,000 mls/hr IV BOLUS ONE Stop: 04/22/24 16:43 Last Infusion: 04/22/24 16:55 Dose: Infused Documented By: Admin: 04/22/24 15:52 Dose: 1,000 mls/hr Documented By: NENA Ondansetron HCl (Ondansetron 4 Mg/2 Ml Inj) 4 mg IV NOW PRN PRN Reason: Nausea And Vomiting Last Admin: 04/22/24 13:06 Dose: 4 mg Documented By: NENA Ondansetron HCl (Ondansetron 4 Mg Odt) 4 mg SL NOW PRN PRN Reason: Nausea And Vomiting Vital Signs Vital signs: Vital Signs - 8 hr 04/22/24 12:34 04/22/24 14:06 04/22/24 14:30 Temperature 97.1 F L Pulse Rate 68 55 L 60 Respiratory Rate 16 Blood Pressure 148/84 H Pulse Oximetry 97 97 96 Oxygen Delivery Method Room Air 04/22/24 15:00 04/22/24 15:30 04/22/24 16:00 Temperature Pulse Rate 65 71 71 Respiratory Rate Blood Pressure Pulse Oximetry 94 95 98 Oxygen Delivery Method 04/22/24 16:30 04/22/24 17:00 04/22/24 17:30 Temperature Pulse Rate 65 70 Respiratory Rate Blood Pressure 140/82 Pulse Oximetry 96 96 95 Oxygen Delivery Method MDM - Nausea/Vomiting/Diarrhea Lab Data 04/22/24 12:55 04/22/24 12:55 Labs: Lab Results 04/22/24 Range/Units 12:55 WBC 7.9 (4.5-11.0) X10^3/uL RBC 4.88 (4.0-5.2) X10^6/uL Hgb 15.4 (12.0-16.0) g/dL Hct 45.0 (36-46) % MCV 92.2 (80-100) fL MCH 31.6 (26-34) PG MCHC 34.3 (30-36) % RDW 12.2 (11.6-14.8) % Plt Count 356 (150-400) X10^3/uL Neut % (Auto) 86.4 H (50-75) % Lymph % (Auto) 7.8 L (25-40) % [place] % (Auto) 5.6 (3-14) % Eos % (Auto) 0.1 L (2-4) % Baso % (Auto) 0.1 (0-2) % Neut # (Auto) 6900 (6774-9643) /uL Lymph # (Auto) 600 L (1652-5864) /uL [place] # (Auto) 400 (0-900) /uL Eos # (Auto) 0 (0-450) /uL Baso # (Auto) 0 (0-100) /uL Sodium 138 (137-145) mmol/L Potassium 3.7 (3.4-5.1) mmol/L Chloride 101 (98-107) mmol/L Carbon Dioxide 29 (22-32) mmol/L BUN 13 (7-17) mg/dL Creatinine 0.81 (0.52-1.04) mg/dL Estimated GFR > 60 (>60) mL/min BUN/Creatinine Ratio 16.0 (6-22) Glucose 115 H (70-100) mg/dL Calcium 9.8 (8.4-10.2) mg/dL Total Bilirubin 0.9 (0.2-1.3) mg/dL AST 40 H (14-36) IU/L ALT 36 H (<35) IU/L Alkaline Phosphatase 69 (38-126) U/L Total Protein 8.4 H (6.3-8.2) g/dL Albumin 4.9 (3.5-5.0) g/dL Globulin 3.5 (1.7-4.1) g/dL Albumin/Globulin Ratio 1.4 (1.0-2.8) Lipase 52 (23-300) U/L Serum , Qual Negative (Negative) Point of Care Testing Test Results Negative Urine Dip Bedside Urine Glucose Negative Bedside Urine Bilirubin - Negative Bedside Urine Ketone + 15 Urine Specific [place] 1.02 Bedside Urine Occult Blood + Bedside Urine pH 6.0 Bedside Urine Protein + 30 Bedside Urine Urobilinogen - Negative Bedside Urine Nitrite - Negative Bedside Urine Leukocytes - Negative Esterase ECG Data Attestation: I personally reviewed and interpreted this ECG as follows: Interpretation: Sinus bradycardia with sinus arrhythmia rate of 57 KS 136 QRS of 92 QTC of 412. No acute ST elevation depression noted. MDM Narrative Medical decision making narrative: 24-year-old female with a history of cyclic vomiting has done well over the last several years but states she was still intermittently gets episodes. Patient has been on abdominal exam. Did take a break from marijuana for 6-8 months but does use it regularly now. No significant abnormalities to labs other than ketones patient does have little bit of blood other signs infection. Patient has had EGD in the past. Show white count of 7.9 hemoglobin of 15.4 platelets of 356, predominance of neutrophils. Electrolytes are overall appropriate glucose is 115 AST is 40 ALT is 36 bilirubin is 0.9 lipase is 52. Urine positive for ketones. Urine micro was sent Urine negative Patient has had Zofran 4 mg, patient has not had any additional vomiting but still feels quite nauseated. Was given 1L of fluids as well as a dose of haldol. On recheck patient was feeling improved. She feels improved and that she can return home at this time. She does request a refill promethazine which they states it is very helpful. No additional vomiting here in the department state vitals has been appropriate. Discharge Plan Departure Patient Disposition: Home Clinical Impression: Cyclical vomiting Instructions: DI for Cyclic Vomiting Syndrome-Adult Activity Restrictions/Additional Instructions: Follow up with your physician. Call to set up a follow up appointment. Take medications as directed. Prescription for promethazine was sent to [facility] here in [place]. Please return for fevers, new or worsening abdominal back or flank pain, persistent vomiting, black or bloody stools or other new or concerning changes. Prescriptions: New promethazine 25 mg suppository 25 mg KS Q6H PRN (Reason: nausea and vomiting) Qty: 12 0RF No Action ondansetron 4 mg tablet,disintegrating 4 mg PO Q6H PRN (Reason: nausea and vomiting) Qty: 20 0RF metoclopramide HCl 10 mg tablet 10 mg PO Q6H PRN (Reason: nausea and vomiting) Qty: 14 0RF promethazine 25 mg suppository 25 mg KS Q4-6H PRN (Reason: nausea and vomiting) Qty: 12 0RF hyoscyamine sulfate 0.125 mg tablet 0.125 mg PO BID-QID PRN (Reason: dyspepsia) Qty: 20 0RF pantoprazole [Protonix] 20 mg tablet,delayed release (DR/EC) 20 mg PO DAILY Qty: 90 0RF promethazine 25 mg suppository 25 mg KS Q4-6H PRN (Reason: nausea and vomiting) Qty: 12 0RF ondansetron HCl [Zofran] 4 mg tablet 4 mg PO Q8H PRN (Reason: nausea and vomiting) Qty: 10 0RF Referrals: Demian Maurer MD [Primary Care Provider] - Stand Alone Forms: Patient Portal/API/Survey
[2024-04-22] MEDS: SODIUM CHLORIDE 0.9% 1,000 ML 1000 ML IV (15:52)
[2024-04-22] MEDS: HALOPERIDOL 5 MG/ML VIAL 2 MG IV (16:04)
[2024-04-22 18:05] LABS: Pregnancy Test Serum,Qual Negative (Negative)
== END 2024-04-22 18:23 | disposition home or self-care (01) ==
PROVIDERS: Emergency Provider Emergency Medicine; PCP Family Medicine
DX: R11.15 Cyclical vomiting syndrome unrelated to migraine (principal); R10.9 Unspecified abdominal pain; R00.1 Bradycardia, unspecified; I49.8 Other specified cardiac arrhythmias; Z97.5 Presence of (intrauterine) contraceptive device
CPT/HCPCS: 36415; 80053; 81003; 81025; 83690; 84703; 85025; 93005; 93010; 96361; 96374; 96375; 99284; J1630; J2405